=== PATIENT | female | born 1955 | race Caucasian/White ===

== ENCOUNTER 2022-12-17 16:11 | Day surgery (SDC) | payer MEDICARE, OTHER ==
[2022-12-17] MEDS ORDERED: Depo-Medrol 40 MG/ML IM ONE (16:12)
[2022-12-17] MEDS ORDERED: BUPIVACAINE 0.5% VIAL IJ ONE (16:12)
[2022-12-17] MEDS ORDERED: Lactated Ringers 1,000 ML IV ONE (16:44)
[2022-12-17] MEDS ORDERED: DIPRIVAN 200 MG/20 ML IV ONE (16:55)
[2022-12-17] MEDS ORDERED: Xylocaine-Mpf 2% 5 Ml Vial ONE (16:55)
--- NOTE | 2022-12-17 18:44 | XRAY ---
Indication: Bilateral L4-S1 MBB. Intraoperative fluoroscopy provided for 13 seconds. Single digital spot image submitted for interpretation demonstrates posterior needle tips projecting over the expected left and right L4-S1 nerve roots. Correlate with intraoperative findings/report.
--- NOTE | 2022-12-18 08:47 | XRAY ---
13 seconds of fluoroscopy was used in surgery for a bilateral L4-S1 MBB.
== END 2022-12-17 17:40 | disposition home or self-care (01) ==
LOC: SDC-PAIN 16:11
PROVIDERS: ATTEND Psychiatry & Neurology Pain Medicine
DX: M47.816 Spondylosis without myelopathy or radiculopathy, lumbar region (principal); Z79.899 Other long term (current) drug therapy
CPT/HCPCS: 64493; 64494; 72020; 77002; J1030; J2704

== ENCOUNTER 2023-02-10 07:41 | Day surgery (SDC) | payer MEDICARE, OTHER ==
[2023-02-10] MEDS ORDERED: Epinephrine Preservative Free 1 MG/ML IJ ONE (07:42)
[2023-02-10] MEDS ORDERED: Ak-Dilate OPHTHALMIC*** 1.065 ML, Cyclogyl 1% OPHTH SOL 1.065 ML, GATIFLOXACIN 0.5% OPH... OP ONE ×4 (08:00)
[2023-02-10] MEDS ORDERED: Lactated Ringers 1,000 ML IV SCH (08:00)
[2023-02-10] MEDS ORDERED: cefUROXime sodium 0.005 GM in Sodium Chloride Flush 30 ML*** 0.5 ML IJ ONE (08:00)
[2023-02-10] MEDS ORDERED: NON-FORMULARY ITEM OP ONE (08:00)
[2023-02-10] MEDS ORDERED: BETADINE 5% OPHTHALMIC 30 ML OP ONE (08:00)
[2023-02-10] MEDS ORDERED: TETRACAINE 0.5% STERI-UNIT SOL OP ONE ×2 (08:00)
[2023-02-10] MEDS ORDERED: Lactated Ringers 1,000 ML IV ONE (08:27)
[2023-02-10] MEDS ORDERED: Zofran 4 MG/2 ML VIAL IV PRN (10:00)
[2023-02-10] MEDS ORDERED: ACETAZOLAMIDE 250 MG TABLET PO ONE (10:00)
[2023-02-10] MEDS ORDERED: DIPRIVAN 200 MG/20 ML IV ONE ×2 (11:19→11:28)
[2023-02-10 11:56] VITALS: BP 151/77; PULSE 71; O2SAT 99
== END 2023-02-10 12:03 | disposition home or self-care (01) ==
LOC: SDC 07:41
PROVIDERS: ATTEND Ophthalmology
DX: H25.812 Combined forms of age-related cataract, left eye (principal)
CPT/HCPCS: C1780; J0171; J2704; A9270-GY

== ENCOUNTER 2023-03-10 08:51 | Day surgery (SDC) | payer MEDICARE, OTHER ==
[~2023-03-10 08:51] MED LIST: Ak-Dilate OPHTHALMIC*** 1.065 ML, Cyclogyl 1% OPHTH SOL 1.065 ML, GATIFLOXACIN 0.5% OPH... OP ONE; BETADINE 5% OPHTHALMIC 30 ML OP ONE; Lactated Ringers 1,000 ML IV SCH; NON-FORMULARY ITEM OP ONE; TETRACAINE 0.5% STERI-UNIT SOL OP ONE; cefUROXime sodium 0.005 GM in Sodium Chloride Flush 30 ML*** 0.5 ML IJ ONE
[2023-03-10] MEDS ORDERED: Epinephrine Preservative Free 1 MG/ML IJ ONE (08:52)
[2023-03-10] MEDS ORDERED: Lactated Ringers 1,000 ML IV ONE (08:59)
[2023-03-10] MEDS ORDERED: Zofran 4 MG/2 ML VIAL IV PRN (09:00)
[2023-03-10] MEDS ORDERED: ACETAZOLAMIDE 250 MG TABLET PO ONE (09:00)
[2023-03-10] MEDS ORDERED: DIPRIVAN 200 MG/20 ML IV ONE (12:33)
[2023-03-10 13:06] VITALS: BP 134/84; PULSE 70; O2SAT 99
== END 2023-03-10 13:11 | disposition home or self-care (01) ==
LOC: SDC 08:51
PROVIDERS: ATTEND Ophthalmology
DX: H25.811 Combined forms of age-related cataract, right eye (principal)
CPT/HCPCS: C1780; J0171; J2704; A9270-GY

== ENCOUNTER 2023-12-17 06:14 | Day surgery (SDC) | payer MEDICARE ==
[2023-12-17] MEDS: Lactated Ringers 1,000 ML IV SCH (06:50)
[2023-12-17 07:08] VITALS: TEMP 97.2
[2023-12-17] MEDS ORDERED: DIPRIVAN 200 MG/20 ML IV ONE ×2 (07:38→07:52)
[2023-12-17 08:36] VITALS: RESP 16
[2023-12-17 08:53] VITALS: BP 114/78; PULSE 87; O2SAT 99
--- NOTE | 2023-12-17 09:11 | OP ---
SURGERY DATE: 12/17/2023 SURGERY TIME: 737 PREOPERATIVE DIAGNOSIS: 1. SCREENING COLONOSCOPY. POSTOPERATIVE DIAGNOSIS: 1. SPLENIC FLEXURE POLYP. 2. DIVERTICULOSIS. PROCEDURE: 1. Colonoscopy. SURGEON: Dr. Reno Menezes. ANESTHESIA: MAC by Colin Sorensen CRNA. SPECIMENS: 1. Hot forceps polypectomy from the splenic flexure. ESTIMATED BLOOD LOSS: Minimal. DESCRIPTION OF PROCEDURE: After informed written consent was obtained, the patient was taken to the endoscopy suite. She was placed in the left lateral decubitus position and anesthesia was titrated to the desired level of consciousness. Digital rectal exam showed normal sphincter tone and no internal lesions. The scope was inserted in the rectum and sequentially the entire colonic mucosa was traversed. The level of the cecum was reached and verified with direct visualization of the ileocecal valve. Upon withdrawal, there was a small sessile polyp in the splenic flexure area which was grasped with the forceps, cauterized, and removed in its entirety. There was no bleeding and the entire lesion appeared to be removed following removal. Upon withdrawal, there were scattered diverticula in the sigmoid colon with no bleeding or other abnormalities encountered. Prior to withdrawal, retroflexion was performed and showed no internal lesions. The scope was removed and the patient was transferred to the recovery room in good condition. She has been advised to follow-up in a week for pathology report.
== END 2023-12-17 08:55 | disposition home or self-care (01) ==
LOC: SDC 06:14
PROVIDERS: ATTEND Family Medicine
DX: Z12.11 Encounter for screening for malignant neoplasm of colon (principal); K57.30 Diverticulosis of large intestine without perforation or abscess without bleeding; D12.3 Benign neoplasm of transverse colon
CPT/HCPCS: J2704

== ENCOUNTER 2024-05-10 17:17 | Emergency (ER) | payer MEDICARE, OTHER ==
[2024-05-10 17:47] LABS: Absolute Neutrophil Ct (ANC) 3.09 x10^3/uL (1.56-6.13); BASOPHIL % 0.1 % (0.1-1.2); Basophil (Absolute #) 0.01 x10^3/uL (0.01-0.08); Eosinophil % 0.9 % (0.7-5.8); Eosinophil (Absolute #) 0.06 x10^3/uL (0.04-0.36); Hemoglobin 10.8 g/dL (11.2-15.7); IMMATURE GRAN # 0.04 x10^3u/L (0.001-0.031); IMMATURE GRAN % 0.6 % (0.001-0.429); Lymphocyte (Absolute #) 2.58 x10^3/uL (1.18-3.74); Lymphocytes % 37.1 % (19.3-51.7); Mean Cell Volume 84.5 fL (79.4-94.8); Mean Corpuscular Hemoglobin 29.4 pg (25.6-32.2); Mean Corpuscular Hgb Concent. 34.8 g/dL (32.2-35.5); Monocyte (Absolute #) 1.18 x10^3/uL (0.24-0.86); Neutrophil % 44.3 % (34.0-71.1); Platelet Count 240 x10^3/uL (182-369); Red Blood Count 3.67 x10^6/uL (3.93-5.22); Red Cell Distribution Width 15.3 % (11.7-14.4)
[2024-05-10] MEDS ORDERED: Zofran 4 MG/2 ML VIAL ONE (17:53)
[2024-05-10] MEDS ORDERED: Sodium Chloride 0.9% 1000 ML 1,000 ML ONE (17:53)
[2024-05-10 17:55] LABS: Appearance Clear (Clear); Bacteria Few /HPF (None Seen); Bilirubin Negative (Negative); Blood Negative (Negative); Epithelial Cells Moderate /HPF (None Seen); Glucose, Urine Negative (Negative); Hyaline Casts NONE SEEN /LPF (0-2); Ketones Negative (Negative); Leukocyte Esterase Trace (Negative); Nitrite Negative (Negative); Ph 7.5 (4.6-8.0); Protein,Urine Dip Trace (Negative); RBC 0-2 /HPF (0-5); Specific Gravity 1.015 (1.005-1.030); WBC 0-2 /HPF (0-5)
[2024-05-10] MEDS: Sodium Chloride 0.9% 1000 ML 1,000 ML IV SCH (17:55)
[2024-05-10] MEDS: Zofran 4 MG/2 ML VIAL IV ONE (17:56)
[2024-05-10 17:59] LABS: ADD URINE CULTURE? NO (NO)
[2024-05-10 18:09] LABS: ALBUMIN 4.2 g/dL (3.5-5.0); Calcium 9.1 mg/dL (8.4-10.2); Creatinine 1 0.95 mg/dL (0.52-1.04); EST GLOMERULAR FILTRATION RATE 65.3 ML/MIN; Potassium 4.7 mmol/L (3.5-5.1); Total Protein 8.8 g/dL (6.3-8.2)
--- NOTE | 2024-05-10 19:41 | ERPHSYRPT ---
- History of Present Illness Timing/Duration: today (LKW 8AM) Severity: moderate Associated Symptoms: malaise, weakness <MUNIRA SHIELDS - Last Filed: 05/10/24 20:44> - History of Present Illness Source: patient Exam Limitations: no limitations Patient Subjective Stated Complaint: Pt states "I am not sure what is going on, my stomach hurts." Triage Nursing Assessment: Pt presented alert and oriented to person, place and month. Pt has brief moments of confusion. PT able to speak in clear full sentences. Hx Tetanus, Diphtheria Vaccination/Date Given: Yes Hx Influenza Vaccination/Date Given: Yes Hx Pneumococcal Vaccination/Date Given: Yes Immunizations Up to Date: No <KARTIK GLOVER - Last Filed: 05/11/24 03:55> - History of Present Illness Time Seen by Provider: 05/10/24 17:50 Physician History: Patient is a 69-year-old female presents to emergency department for evaluation of confusion. Patient also having difficulty with memory. Patient drove up from [place] from visiting a friend. Patient did not recall her visitation. Family reports that patient is not remembering basic facts. Patient also experiencing generalized abdominal pain no headache no chest pain or shortness of breath. No nausea vomiting or diaphoresis. Patient is normally alert and oriented x 4. Patient states she feels fine otherwise. Family at bedside voices no other complaints or concerns at this time. Portions of this note were created with voice recognition technology. There may be grammatical, spelling, punctuation or sound alike errors (KARTIK GLOVER) Allergies/Adverse Reactions: methotrexate Allergy (Mild, Verified 12/17/23 06:50) rash/ itching Home Medications: RX: ALPRAZolam 0.25 MG [xanAX 0.25 MG] 0.25 mg PO UD PRN 02/03/23 [History] RX: Hydroxychloroquine Sulfate 1 tab PO UD 02/03/23 [History] RX: Topiramate 25 mg [Topamax 25 MG] 25 mg PO TID 02/03/23 [History] RX: Butalbit/Acetamin/Caff/Codeine [Fioricet-Cod [id number] Cap] 1 tab PO DAILY PRN PRN 11/12/23 [History] RX: Fenofibrate Nanocrystallized [Fenofibrate] 145 mg PO DAILY 11/12/23 [History] RX: Cyanocobalamin 1000 Mcg/ml [Cyanocobalamin B-12 1000 MCG/ML] 1,000 mcg IJ UD 12/17/23 [History] Carvedilol 3.125 mg [Coreg 3.125 MG] 3.125 mg PO DAILY 05/10/24 [History] Isosorbide Mononitrate 30 mg [Imdur 30 MG] 30 mg PO DAILY 05/10/24 [History] RX: Hydralazine HCl 10 mg PO DAILY PRN 05/10/24 [History] Ranolazine 500 MG [Ranexa 500 MG] 500 mg PO BID 05/10/24 [History] Travel Risk - International Travel Have you traveled outside of the country in past 3 weeks: No - Emerging Infectious Disease Are you exhibiting symptoms associated with any current EIDs: No <KARTIK GLOVER - Last Filed: 05/11/24 03:55> - Review of Systems Constitutional: No Symptoms, No Fever, No Chills Eyes: No Symptoms Ears, Nose, & Throat: No Symptoms Respiratory: No Symptoms, No Cough, No Dyspnea Cardiac: No Symptoms, No Chest Pain, No Edema, No Syncope Abdominal/Gastrointestinal: No Symptoms, No Abdominal Pain, No Nausea, No Vomiting, No Diarrhea Genitourinary Symptoms: No Symptoms, No Dysuria Musculoskeletal: No Symptoms, No Back Pain, No Neck Pain Skin: No Symptoms, No Rash Neurological: No Symptoms, No Dizziness, No Focal Weakness, No Sensory Changes Psychological: No Symptoms Endocrine: No Symptoms Hematologic/Lymphatic: No Symptoms Immunological/Allergic: No Symptoms All Other Systems: Reviewed and Negative <KARTIK GLOVER - Last Filed: 05/11/24 03:55> - Past Medical History Pertinent Past Medical History: Yes Neurological History: No Pertinent History ENT History: Cataracts Cardiac History: High Cholesterol, Hypertension Respiratory History: No Pertinent History Endocrine Medical History: No Pertinent History Musculoskeletal History: Osteoarthritis, Rheumatoid Arthritis GI Medical History: No Pertinent History History: Other Psycho-Social History: Anxiety Female Reproductive Disorders: No Pertinent History Other Medical History: RIGHT PARTIAL KNEE ARTHROPLASTY 2010. HYSTERECTOMY,. incontinence - Past Surgical History Past Surgical History: Yes Neuro Surgical History: No Pertinent History Cardiac: No Pertinent History Respiratory: No Pertinent History Gastrointestinal: No Pertinent History Genitourinary: No Pertinent History Musculoskeletal: Joint Replacement, Other Female Surgical History: Hysterectomy, Tubal Ligation Other Surgical History: partial right knee replacement. back injection. left ankle surgery. knee injections - Social History Smoking Status: Former smoker How long have you smoked: 30 years Exposure to second hand smoke: No Drug Use: none - Social Determinants of Health Will the patient participate in the screening: Yes Do you worry about a steady place to live?: No Do you have any problems with any of the following?: No known problems In the past 12 months,have you had to go without utilities?: No Transportation Issues: No Has anyone in your support network made you feel unsafe?: No Have you or anyone in your house had to go without enough: No <ADALBERTOKARTIK - Last Filed: 05/11/24 03:55> - Physical Exam General Appearance: no apparent distress, alert Eye Exam: PERRL/EOMI, eyes nml inspection Ears, Nose, Throat Exam: normal ENT inspection, TMs normal, pharynx normal, moist mucous membranes Neck Exam: normal inspection, non-tender, supple, full range of motion Respiratory Exam: normal breath sounds, lungs clear, airway intact, No respiratory distress Cardiovascular Exam: regular rate/rhythm, normal heart sounds, normal peripheral pulses Gastrointestinal/Abdomen Exam: soft, normal bowel sounds, No tenderness, No mass Back Exam: normal inspection, normal range of motion, No CVA tenderness, No ve rtebral tenderness Extremity Exam: normal inspection, normal range of motion, pelvis stable Neurologic Exam: alert, oriented x 3, cooperative, package pick up II-XII nml as tested (No focal or lateralizing symptoms), normal mood/affect, sensation nml, No motor d eficits Skin Exam: normal color, warm, dry, No rash Lymphatic Exam: No adenopathy SpO2 Interpretation: normal SpO2: 98 O2 Delivery: Room Air <KARTIK GLOVER - Last Filed: 05/11/24 03:55> - Nursing Vital Signs Nursing Vital Signs: Initial Vital Signs Temperature 96.7 F 05/10/24 17:34 Pulse Rate 81 05/10/24 17:34 Respiratory Rate 20 05/10/24 17:34 Blood Pressure 186/114 05/10/24 17:34 O2 Sat by Pulse Oximetry 99 05/10/24 17:34 Pain Scale Pain Intensity 0 - Course Nursing assessment & vital signs reviewed: Yes EKG Interpreted by Me: RATE (81), Sinus Rhythm, NORMAL AXIS, NORMAL INTERVALS, NORMAL QRS - CT Exams Head CT Interpretation: Tele-radiologist Report (No acute intracranial pathology) Abdomen/Pelvis CT Interpretation: Tele-radiologist Report <KARTIK GLOVER - Last Filed: 05/11/24 03:55> Ordered Tests: Active Orders 24 hr Category Date Time Status Registered Associate STAT Care 05/10/24 17:27 Active EKG-ER Only STAT Care 05/10/24 17:27 Active IV Insertion STAT Care 05/10/24 17:27 Active Pulse Oximetry (ED) STAT Care 05/10/24 17:27 Active Tele-Health Consult ROUTINE Cons 05/10/24 18:22 Active ABDOMEN AND PELVIS W/0 CONTRAS [CT] Stat Exams 05/10/24 17:40 Completed HEAD WITHOUT CONTRAST [CT] Stat Exams 05/10/24 17:26 Completed BMP Stat Lab 05/10/24 23:05 Completed BMP Stat Lab 05/11/24 01:11 Completed CBC W DIFF Stat Lab 05/10/24 17:35 Completed CMP Stat Lab 05/10/24 17:35 Completed CMP Stat Lab 05/10/24 20:55 Completed TROPONIN Q4H Lab 05/10/24 17:35 Completed TROPONIN Q4H Lab 05/10/24 20:55 Completed TROPONIN Q4H Lab 05/11/24 01:11 Completed UA W/RFX UR CULTURE Stat Lab 05/10/24 17:35 Completed Medication Summary Discontinued Medications Generic Name Dose Route Start Last Admin Trade Name Jovanyq PRN Reason Stop Dose Admin Al Hydrox/Mg Hydrox/Simethicone Confirm 05/10/24 21:23 Mag Hydrox/Al Hydrox/Simeth 30 Ml Udcup Administered 05/10/24 21:24 Dose 30 ml .ROUTE .STK-MED ONE Alprazolam 0.5 mg 05/10/24 21:38 05/10/24 21:43 Alprazolam 0.5 Mg Tablet PO 05/10/24 21:39 0.5 mg STAT ONE Administration Alprazolam Confirm 05/10/24 21:42 Alprazolam 0.5 Mg Tablet Administered 05/10/24 21:43 Dose 0.5 mg .ROUTE .STK-MED ONE Sodium Chloride 1,000 mls @ 50 mls/hr 05/10/24 17:30 05/11/24 02:13 Sodium Chloride 0.9% 1000 Ml IV 06/09/24 17:29 200 mls/hr .Q20H ALEKSANDR Infusion Sodium Chloride 500 mls @ 20 mls/hr 05/10/24 21:45 05/10/24 22:29 Sodium Chloride 3% Hypertonic IV 06/09/24 21:44 0 mls/hr .Q24H ALEKSANDR Infusion Sodium Chloride Confirm 05/10/24 17:53 Sodium Chloride 0.9% 1000 Ml Administered 05/10/24 17:54 Dose 1,000 mls @ ud .ROUTE .STK-MED ONE Lidocaine HCl Confirm 05/10/24 21:23 Lidocaine Hcl 2% Viscous 15 Ml Udcup Administered 05/10/24 21:24 Dose 15 ml .ROUTE .STK-MED ONE Magnesium Hydroxide 45 ml 05/10/24 21:02 05/10/24 21:24 Mag Hydrx/Alum Hyd/Simeth/Lido 45 Ml Bottle PO 05/10/24 21:03 45 ml STAT ONE Administration Ondansetron HCl 4 mg 05/10/24 17:28 05/10/24 17:56 Ondansetron Hcl 4 Mg/2 Ml Vial IV 05/10/24 17:29 4 mg STAT ONE Administration Ondansetron HCl Confirm 05/10/24 17:53 Ondansetron Hcl 4 Mg/2 Ml Vial Administered 05/10/24 17:54 Dose 4 mg .ROUTE .STK-MED ONE Lab/Rad Data: Laboratory Result Diagrams 05/10/24 17:35 05/11/24 01:11 Laboratory Results 05/11/24 05/11/24 05/10/24 Range/Units 01:11 01:11 23:05 WBC (3.98-10.04) x10^3/uL RBC (3.93-5.22) x10^6/uL Hgb (11.2-15.7) g/dL Hct (34.1-44.9) % MCV (79.4-94.8) fL MCH (25.6-32.2) pg MCHC (32.2-35.5) g/dL RDW (11.7-14.4) % Plt Count (182-369) x10^3/uL MPV (9.4-12.3) fL Gran % (34.0-71.1) % Immature Gran % (Auto) (0.001-0.429) % Nucleat RBC Rel Count (0.00-0.2) % Eos # (Auto) (0.04-0.36) x10^3/uL Immature Gran # (Auto) (0.001-0.031) x10^3u/L Absolute Lymphs (auto) (1.18-3.74) x10^3/uL Absolute Monos (auto) (0.24-0.86) x10^3/uL Absolute Nucleated RBC (0.00-0.012) x10^3u/L Lymphocytes % (19.3-51.7) % Monocytes % (4.7-12.5) % Eosinophils % (0.7-5.8) % Basophils % (0.1-1.2) % Absolute Granulocytes (1.56-6.13) x10^3/uL Basophils # (0.01-0.08) x10^3/uL Sodium 117 L* 116 L* (135-145) mmol/L Potassium 4.1 4.1 (3.5-5.1) mmol/L Chloride 87 L 88 L (98-107) mmol/L Carbon Dioxide 21 L 20 L (22-30) mmol/L Anion Gap 13.3 12.3 (5-15) MEQ/L BUN 15 15 (7-17) mg/dL Creatinine 1.03 1.00 (0.52-1.04) mg/dL Estimated GFR 59.2 61.4 ML/MIN Glucose 91 95 (74-106) mg/dL Calcium 8.7 8.6 (8.4-10.2) mg/dL Total Bilirubin (0.2-1.3) mg/dL AST (14-36) U/L ALT (0-35) U/L Alkaline Phosphatase (38-126) U/L Troponin I < 0.012 (0.000-0.033) ng/mL Serum Total Protein (6.3-8.2) g/dL Albumin (3.5-5.0) g/dL Urine Color (Yellow) Urine Appearance (Clear) Urine pH (4.6-8.0) Ur Specific [place] (1.005-1.030) Urine Protein (Negative) Urine Glucose (UA) (Negative) mg/dL Urine Ketones (Negative) Urine Blood (Negative) Urine Nitrite (Negative) Urine Bilirubin (Negative) Urine Urobilinogen (0.2) mg/dL Ur Leukocyte Esterase (Negative) U Hyaline Cast (Auto) (0-2) /LPF Urine Microscopic RBC (0-5) /HPF Urine Microscopic WBC (0-5) /HPF Ur Epithelial Cells (None Seen) /HPF Urine Bacteria (None Seen) /HPF Urine Culture Reflexed (NO) 05/10/24 05/10/24 05/10/24 Range/Units 20:55 20:55 17:35 WBC (3.98-10.04) x10^3/uL RBC (3.93-5.22) x10^6/uL Hgb (11.2-15.7) g/dL Hct (34.1-44.9) % MCV (79.4-94.8) fL MCH (25.6-32.2) pg MCHC (32.2-35.5) g/dL RDW (11.7-14.4) % Plt Count (182-369) x10^3/uL MPV (9.4-12.3) fL Gran % (34.0-71.1) % Immature Gran % (Auto) (0.001-0.429) % Nucleat RBC Rel Count (0.00-0.2) % Eos # (Auto) (0.04-0.36) x10^3/uL Immature Gran # (Auto) (0.001-0.031) x10^3u/L Absolute Lymphs (auto) (1.18-3.74) x10^3/uL Absolute Monos (auto) (0.24-0.86) x10^3/uL Absolute Nucleated RBC (0.00-0.012) x10^3u/L Lymphocytes % (19.3-51.7) % Monocytes % (4.7-12.5) % Eosinophils % (0.7-5.8) % Basophils % (0.1-1.2) % Absolute Granulocytes (1.56-6.13) x10^3/uL Basophils # (0.01-0.08) x10^3/uL Sodium 115 L* (135-145) mmol/L Potassium 4.7 (3.5-5.1) mmol/L Chloride 87 L (98-107) mmol/L Carbon Dioxide 18 L (22-30) mmol/L Anion Gap 14.9 (5-15) MEQ/L BUN 16 (7-17) mg/dL Creatinine 0.99 (0.52-1.04) mg/dL Estimated GFR 62.1 ML/MIN Glucose 104 (74-106) mg/dL Calcium 9.0 (8.4-10.2) mg/dL Total Bilirubin 1.00 (0.2-1.3) mg/dL AST 89 H (14-36) U/L ALT 47 H (0-35) U/L Alkaline Phosphatase 72 (38-126) U/L Troponin I < 0.012 < 0.012 (0.000-0.033) ng/mL Serum Total Protein 8.5 H (6.3-8.2) g/dL Albumin 4.1 (3.5-5.0) g/dL Urine Color (Yellow) Urine Appearance (Clear) Urine pH (4.6-8.0) Ur Specific [place] (1.005-1.030) Urine Protein (Negative) Urine Glucose (UA) (Negative) mg/dL Urine Ketones (Negative) Urine Blood (Negative) Urine Nitrite (Negative) Urine Bilirubin (Negative) Urine Urobilinogen (0.2) mg/dL Ur Leukocyte Esterase (Negative) U Hyaline Cast (Auto) (0-2) /LPF Urine Microscopic RBC (0-5) /HPF Urine Microscopic WBC (0-5) /HPF Ur Epithelial Cells (None Seen) /HPF Urine Bacteria (None Seen) /HPF Urine Culture Reflexed (NO) 05/10/24 05/10/24 05/10/24 Range/Units 17:35 17:35 17:35 WBC 7.0 (3.98-10.04) x10^3/uL RBC 3.67 L (3.93-5.22) x10^6/uL Hgb 10.8 L (11.2-15.7) g/dL Hct 31.0 L (34.1-44.9) % MCV 84.5 (79.4-94.8) fL MCH 29.4 (25.6-32.2) pg MCHC 34.8 (32.2-35.5) g/dL RDW 15.3 H (11.7-14.4) % Plt Count 240 (182-369) x10^3/uL MPV 10.0 (9.4-12.3) fL Gran % 44.3 (34.0-71.1) % Immature Gran % (Auto) 0.6 H (0.001-0.429) % Nucleat RBC Rel Count 0.0 (0.00-0.2) % Eos # (Auto) 0.06 (0.04-0.36) x10^3/uL Immature Gran # (Auto) 0.04 H (0.001-0.031) x10^3u/L Absolute Lymphs (auto) 2.58 (1.18-3.74) x10^3/uL Absolute Monos (auto) 1.18 H (0.24-0.86) x10^3/uL Absolute Nucleated RBC 0.00 (0.00-0.012) x10^3u/L Lymphocytes % 37.1 (19.3-51.7) % Monocytes % 17.0 H (4.7-12.5) % Eosinophils % 0.9 (0.7-5.8) % Basophils % 0.1 (0.1-1.2) % Absolute Granulocytes 3.09 (1.56-6.13) x10^3/uL Basophils # 0.01 (0.01-0.08) x10^3/uL Sodium 115 L* (135-145) mmol/L Potassium 4.7 (3.5-5.1) mmol/L Chloride 86 L (98-107) mmol/L Carbon Dioxide 19 L (22-30) mmol/L Anion Gap 16.0 H (5-15) MEQ/L BUN 18 H (7-17) mg/dL Creatinine 0.95 (0.52-1.04) mg/dL Estimated GFR 65.3 ML/MIN Glucose 109 H (74-106) mg/dL Calcium 9.1 (8.4-10.2) mg/dL Total Bilirubin 1.00 (0.2-1.3) mg/dL AST 91 H (14-36) U/L ALT 48 H (0-35) U/L Alkaline Phosphatase 70 (38-126) U/L Troponin I (0.000-0.033) ng/mL Serum Total Protein 8.8 H (6.3-8.2) g/dL Albumin 4.2 (3.5-5.0) g/dL Urine Color Yellow (Yellow) Urine Appearance Clear (Clear) Urine pH 7.5 (4.6-8.0) Ur Specific [place] 1.015 (1.005-1.030) Urine Protein Trace A (Negative) Urine Glucose (UA) Negative (Negative) mg/dL Urine Ketones Negative (Negative) Urine Blood Negative (Negative) Urine Nitrite Negative (Negative) Urine Bilirubin Negative (Negative) Urine Urobilinogen 1.0 A (0.2) mg/dL Ur Leukocyte Esterase Trace A (Negative) U Hyaline Cast (Auto) NONE SEEN (0-2) /LPF Urine Microscopic RBC 0-2 (0-5) /HPF Urine Microscopic WBC 0-2 (0-5) /HPF Ur Epithelial Cells Moderate A (None Seen) /HPF Urine Bacteria Few A (None Seen) /HPF Urine Culture Reflexed NO (NO) - Progress Progress: improved Counseled pt/family regarding: lab results, diagnosis, rad results <ADALBERTOKARTIK - Last Filed: 05/11/24 03:55> - Progress Progress Note: Admission declined by Dr. Natasha Coates at approximately 8:57 PM. He reports discussing the case with the warehouse unloader and they mutually agree that hu lozano requires a higher level of care 05/10/24 21:[address] Ram at 11:08 PM. Leanna is hospitalist at [facility]. 05/10/24 23:09 69-year-old female presents to our ED for evaluation of confusion and difficulty with memory. Workup reveals a profound hyponatremia. CT head negative for acute intracranial pathology. CT abdomen pelvis revealed fecal stasis and hiatal hernia. Patient evaluated by teleneurology. CT teleneurology note for recommendations. However it appears they believe that patient's new medication may be factoring in the patient's clinical findings. Patient requires hospitalization for advanced imaging. Hyponatremia correction initiated. Hospitalist requesting transfer to higher level of care. Patient accepted by [facility] for further evaluation and treatment. Portions of this note were created with voice recognition technology. There may be grammatical, spelling, punctuation or sound alike errors Complexity problem addressed is moderate acute complicated. No critical care time. Complex of data reviewed and analyzed is extensive. Test ordered test reviewed results analyzed and correlated clinically with history and physical exam. Management discussed with hospitalist, Dr. Coates as well as Dr. Ram from [facility]. Patient accepted for transfer by Dr. Ram. Patient and family agree to transfer. Risk of complication and or risk of morbidity/mortality of patient management is high. Patient requires transfer/ho spitalization to higher level of care. Vital stable. Time spent to discharge patient approximately 15 minutes. Plan of care established for shared decision making. No social determinants of health present to impede follow-up. Portions of this note were created with voice recognition technology. There may be grammatical, spelling, punctuation or sound alike errors 05/11/24 03:47 (KARTIK GLOVER) <MUNIRA SHIELDS - Last Filed: 05/10/24 20:44> - Departure Departure Disposition: Observation Critical Care Time: No <KARTIK GLOVER - Last Filed: 05/11/24 03:55> - Departure Clinical Impression: Confusion, Hyponatremia, Encephalopathy Condition: Stable Referrals: [employer] [Primary Care Provider] - Follow up/PCP as directed
--- NOTE | 2024-05-10 20:43 | PCM.CONS ---
History of Present Illness - Neuro Consultation Date of Consultation Date: 05/10/24 ED Arrival Date & Time: 05/10/24 17:17 Providers: Attending Provider: ED Provider: KARTIK CARCAMO Consulting Provider: MUNIRA SHIELDS DO cc:: The requesting physician will be sent a copy of the consult. - Chief Complaint Patient Subjective Stated Complaint: Patient is a 69 yr. old RH woman who presents to the ED w AMS/ confusion w LKW 8AM today.... low serum Na+ noted... NIHSS 1 confusion/ Na+ 115.... / CT scan br (-)... recent TPX medication initiated... 1 month ago.... unclear why medication was initiated.... + hx of headaches... NIHSS 1/ CT scan br- visualized and reviewed- no acute findings.... Plan further MRI br in AM/ titration correction of serum Na+ per renal service.... 3% NaCL.... drip.... EEG/ paraneoplastic panel/ ANCA panel/ ESR/ CRP/ COVID panel/ resp panel.... etc... case reviewed and d/w Dr. Carcamo..... - History of Present Illness HPI: The patient is a 69FPatient is a 69 yr. old RH woman who presents to the ED w AMS/ confusion w LKW 8AM today.... low serum Na+ noted... NIHSS 1 confusion/ Na+ 115.... / CT scan br (-)... recent TPX medication initiated... 1 month ago.... unclear why medication was initiated.... + hx of headaches... NIHSS 1/ CT scan br- visualized and reviewed- no acute findings.... Plan further MRI br in AM/ titration correction of serum Na+ per renal service.... 3% NaCL.... drip.... EEG/ paraneoplastic panel/ ANCA panel/ ESR/ CRP/ COVID panel/ resp panel.... etc... case reviewed and d/w Dr. Carcamo..... Review of Systems - Review of Systems Review of Systems (Narrative): Pertinent positive and negative findings as per HPI. All other systems negative. - Past Medical History Past Medical History: Yes Neurological History: No Pertinent History ENT History: Cataracts Cardiac History: High Cholesterol, Hypertension Respiratory History: No Pertinent History Endocrine Medical History: No Pertinent History Musculoskelatal History: Osteoarthritis, Rheumatoid Arthritis GI Medical History: No Pertinent History History: Other Pyscho-Social History: Anxiety Reproductive Disorders: No Pertinent History Comment: RIGHT PARTIAL KNEE ARTHROPLASTY 2010. HYSTERECTOMY,. incontinence - Past Surgical History Past Surgical History: Yes Neuro Surgical History: No Pertinent History Cardiac History: No Pertinent History Respiratory Surgery: No Pertinent History GI Surgical History: No Pertinent History Genitourinary Surgical Hx: No Pertinent History Musculskeletal Surgical Hx: Joint Replacement, Other Female Surgical History: Hysterectomy, Tubal Ligation Other Surgical History: partial right knee replacement. back injection. left ankle surgery. knee injections - Social History Smoking Status: Former smoker How long have you smoked: 30 years Exposure to second hand smoke: No Alcohol: Daily Drug Use: none - Social Determinants of Health Will the patient participate in the screening: Yes Do you worry about a steady place to live?: No Do you have any problems with any of the following?: No known problems In the past 12 months,have you had to go without utilities?: No Have you or anyone in your house had to go without enough: No Transportation Issues: No Has anyone in your support network made you feel unsafe?: No Physical Exam - Vital Signs Vital Signs: Vital Signs - 24 hr 05/10/24 05/10/24 05/10/24 17:34 18:11 18:15 Temperature 96.7 F Pulse Rate 81 80 80 Respiratory 20 14 18 Rate Blood Pressure Blood Pressure 186/114 [Right Arm] O2 Sat by Pulse 99 97 Oximetry 05/10/24 05/10/24 05/10/24 18:16 18:30 18:45 Temperature Pulse Rate 79 78 78 Respiratory 19 22 19 Rate Blood Pressure 166/103 150/75 160/96 Blood Pressure [Right Arm] O2 Sat by Pulse 98 96 94 L Oximetry 05/10/24 05/10/24 05/10/24 19:01 19:16 19:30 Temperature Pulse Rate 79 78 80 Respiratory 17 19 20 Rate Blood Pressure 104/88 151/120 159/98 Blood Pressure [Right Arm] O2 Sat by Pulse 93 L 94 L 96 Oximetry 05/10/24 05/10/24 05/10/24 19:41 19:46 20:00 Temperature Pulse Rate 78 78 Respiratory 18 20 Rate Blood Pressure 162/76 162/119 Blood Pressure [Right Arm] O2 Sat by Pulse 98 96 96 Oximetry - Physical Exam Tele-Neuro Physical Exam (Narrative): Neuro exam: NIHSS 1 Patient awake/ alert/ oriented in 3/4 spheres. Speech is fluent/ naming is intact/ Repetition intact/ no evidence of aphasia noted. No dysarthria noted. 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/ EOMs intact in all directions of gaze/symmetric facial sensation V1-2 -3 bilaterally/ symmetrical facial upper/ lower noted/ audition intact/ tongue midline/ phonation intact/ + gag reflex intact/ SCMs(=) Motor exam- no pronator drift/ 4/5+ bilateral UEs/ LEs proximal to distal Sensory-intact to light touch throughout bilateral UEs/ LEs/ no agraphesthesia/ no astereognosis/ no double simultaneous extinction DTRs- deferred/ no babinski sign illicited Cerebellar- finger to nose/ heel-reddy (=)/ no dysmetria noted/ no overshoot nystagmus/ no rebound phenomenon Gait- not tested Fine motor- no resting tremor/ no myoclonus/ no abnormal involuntary movements/ no choreiform movements Gen: No apparent distress, non-toxic appearing Psych: normal affect HEENT: No visible bruising, no mucosal pallor Ophth: No scleral icterus, no conjunctival injection or proptosis Neck: No nuchal rigidity, turns neck without difficulty Resp: normal respirations, no distress, speaking in full sentences CV: No visible edema in LE Abd: No abd distention noted MSK: No joint swelling, erythema noted. No contractures noted. Skin: No pallor. No visible rashes or bruising - NIHSS Stroke Scale Date Completed: 05/10/24 Time Stroke Scale Completed: 17:49 Results - Labs Lab/Micro Results: Lab Results-Last 24 Hours 05/10/24 05/10/24 05/10/24 Range/Units 17:35 17:35 17:35 WBC 7.0 (3.98-10.04) x10^3/uL RBC 3.67 L (3.93-5.22) x10^6/uL Hgb 10.8 L (11.2-15.7) g/dL Hct 31.0 L (34.1-44.9) % MCV 84.5 (79.4-94.8) fL MCH 29.4 (25.6-32.2) pg MCHC 34.8 (32.2-35.5) g/dL RDW 15.3 H (11.7-14.4) % Plt Count 240 (182-369) x10^3/uL MPV 10.0 (9.4-12.3) fL Gran % 44.3 (34.0-71.1) % Immature Gran % (Auto) 0.6 H (0.001-0.429) % Nucleat RBC Rel Count 0.0 (0.00-0.2) % Eos # (Auto) 0.06 (0.04-0.36) x10^3/uL Immature Gran # (Auto) 0.04 H (0.001-0.031) x10^3u/L Absolute Lymphs (auto) 2.58 (1.18-3.74) x10^3/uL Absolute Monos (auto) 1.18 H (0.24-0.86) x10^3/uL Absolute Nucleated RBC 0.00 (0.00-0.012) x10^3u/L Lymphocytes % 37.1 (19.3-51.7) % Monocytes % 17.0 H (4.7-12.5) % Eosinophils % 0.9 (0.7-5.8) % Basophils % 0.1 (0.1-1.2) % Absolute Granulocytes 3.09 (1.56-6.13) x10^3/uL Basophils # 0.01 (0.01-0.08) x10^3/uL Sodium 115 L* (135-145) mmol/L Potassium 4.7 (3.5-5.1) mmol/L Chloride 86 L (98-107) mmol/L Carbon Dioxide 19 L (22-30) mmol/L Anion Gap 16.0 H (5-15) MEQ/L BUN 18 H (7-17) mg/dL Creatinine 0.95 (0.52-1.04) mg/dL Estimated GFR 65.3 ML/MIN Glucose 109 H (74-106) mg/dL Calcium 9.1 (8.4-10.2) mg/dL Total Bilirubin 1.00 (0.2-1.3) mg/dL AST 91 H (14-36) U/L ALT 48 H (0-35) U/L Alkaline Phosphatase 70 (38-126) U/L Troponin I (0.000-0.033) ng/mL Serum Total Protein 8.8 H (6.3-8.2) g/dL Albumin 4.2 (3.5-5.0) g/dL Urine Color Yellow (Yellow) Urine Appearance Clear (Clear) Urine pH 7.5 (4.6-8.0) Ur Specific Burnham 1.015 (1.005-1.030) Urine Protein Trace A (Negative) Urine Glucose (UA) Negative (Negative) mg/dL Urine Ketones Negative (Negative) Urine Blood Negative (Negative) Urine Nitrite Negative (Negative) Urine Bilirubin Negative (Negative) Urine Urobilinogen 1.0 A (0.2) mg/dL Ur Leukocyte Esterase Trace A (Negative) U Hyaline Cast (Auto) NONE SEEN (0-2) /LPF Urine Microscopic RBC 0-2 (0-5) /HPF Urine Microscopic WBC 0-2 (0-5) /HPF Ur Epithelial Cells Moderate A (None Seen) /HPF Urine Bacteria Few A (None Seen) /HPF Urine Culture Reflexed NO (NO) 05/10/24 Range/Units 17:35 WBC (3.98-10.04) x10^3/uL RBC (3.93-5.22) x10^6/uL Hgb (11.2-15.7) g/dL Hct (34.1-44.9) % MCV (79.4-94.8) fL MCH (25.6-32.2) pg MCHC (32.2-35.5) g/dL RDW (11.7-14.4) % Plt Count (182-369) x10^3/uL MPV (9.4-12.3) fL Gran % (34.0-71.1) % Immature Gran % (Auto) (0.001-0.429) % Nucleat RBC Rel Count (0.00-0.2) % Eos # (Auto) (0.04-0.36) x10^3/uL Immature Gran # (Auto) (0.001-0.031) x10^3u/L Absolute Lymphs (auto) (1.18-3.74) x10^3/uL Absolute Monos (auto) (0.24-0.86) x10^3/uL Absolute Nucleated RBC (0.00-0.012) x10^3u/L Lymphocytes % (19.3-51.7) % Monocytes % (4.7-12.5) % Eosinophils % (0.7-5.8) % Basophils % (0.1-1.2) % Absolute Granulocytes (1.56-6.13) x10^3/uL Basophils # (0.01-0.08) x10^3/uL Sodium (135-145) mmol/L Potassium (3.5-5.1) mmol/L Chloride (98-107) mmol/L Carbon Dioxide (22-30) mmol/L Anion Gap (5-15) MEQ/L BUN (7-17) mg/dL Creatinine (0.52-1.04) mg/dL Estimated GFR ML/MIN Glucose (74-106) mg/dL Calcium (8.4-10.2) mg/dL Total Bilirubin (0.2-1.3) mg/dL AST (14-36) U/L ALT (0-35) U/L Alkaline Phosphatase (38-126) U/L Troponin I < 0.012 (0.000-0.033) ng/mL Serum Total Protein (6.3-8.2) g/dL Albumin (3.5-5.0) g/dL Urine Color (Yellow) Urine Appearance (Clear) Urine pH (4.6-8.0) Ur Specific Burnham (1.005-1.030) Urine Protein (Negative) Urine Glucose (UA) (Negative) mg/dL Urine Ketones (Negative) Urine Blood (Negative) Urine Nitrite (Negative) Urine Bilirubin (Negative) Urine Urobilinogen (0.2) mg/dL Ur Leukocyte Esterase (Negative) U Hyaline Cast (Auto) (0-2) /LPF Urine Microscopic RBC (0-5) /HPF Urine Microscopic WBC (0-5) /HPF Ur Epithelial Cells (None Seen) /HPF Urine Bacteria (None Seen) /HPF Urine Culture Reflexed (NO) - Radiology Orders Radiology Orders: Radiology Procedures Category Date Time Status ABDOMEN AND PELVIS W/0 CONTRAS [CT] Stat Exams 05/10/24 17:40 Taken HEAD WITHOUT CONTRAST [CT] Stat Exams 05/10/24 17:[address] brain Impressions & Recommendations - ED Arrival Time ED Arrival Date & Time: ED Arrival Date and Time 05/10/24 17:17 Last known well time: - NIHSS NIHSS: Excusion Criteria Must answer YES to ALL in order to proceed with thrombolysis. Clear All Neurological deficit considered to be disabling within 4.5 h of ischemic stroke symptom onset or patient last known well BP < 185/110 Glucose > 50 mg/dL Exclusion Criteria Physicians with expertise in cerebrovascular disease may deem thrombolysis to be reasonable in the presence of one or more exclusion criteria after careful consideration of potential risk versus benefit to the patient. Clear All Acute head trauma or recent severe head trauma within the previous 3 months Symptoms suggesting subarachnoid hemorrhage Elevated blood pressure despite IV medications (>185/>110 mm Hg) Known coagulopathy platelets <100,000/mm3, INR >1.7, aPTT >40s, PT >15s (do not wait for labs unless known thrombocytopenia or anticoagulation) Thrombin inhibitors or factor Xa inhibitors unless aPTT, INR, platelet count, ECT, TT, or appropriate direct factor Xa activity assays are normal or the patient has not received a dose for >48 hours (with normal renal function) LMWH on anticoagulant (full treatment) dosing within < 24 hours Concomitant administration of IV Abciximab, or IV aspirin within [address] the start of IV alteplase initiation Extensive regions of marked clear and obvious hypodensity representing early ischemic changes irreversible injury Acute intracranial hemorrhage History of intracranial hemorrhage Symptoms consistent with infective endocarditis Known or suspected aortic arch dissection GI malignancy or recent GI bleed within 21 days Mild nondisabling stroke (NIHSS 0-5) Prior ischemic stroke within previous 3 months Intracranial/intraspinal surgery within 3 months Intra-axial intracranial neoplasm NIHSS NIHSS Scale 1 Default all to Zero Show All Descriptions 1. Level of Consciousness 0 x 1 2 3 1a.LOC Questions 0 1x 2 1b. LOC Commands 0x 1 2 2. Best Gaze 0x 1 2 3. Visual 0x 1 2 3 4. Facial Palsy 0x 1 2 3 5. Motor Arm 5a. Left Arm xx 0 1 2 3 4 UN 5b. Right Arm 0x 1 2 3 4 UN 6. Motor Leg 6a. Left Leg 0xx 1 2 3 4 UN 6b. Right Leg 0x 1 2 3 4 UN 7. Limb Ataxia 0x 1 2 UN 8. Sensory 0x 1 2 9. Best Language 0x 1 2 3 10. Dysarthria 0x 1 2 UN 11. Extinction and Inattention(formerly Neglect) 0x 1 2 NIHSS Comments: NIHSS Score: 1 Is patient a thrombectomy candidate:: No Candidate (No): Reason: Patient is not a candidat IV Thrombolysis Standard of Care: IV thrombolysis as a standard of care in acute stroke discussed with KARTIK AUSTIN. Risk, benefits, and options of IV thrombolytic therapy for acute ischemic stroke were discussed with the patient/family ANGELITO LAINEZ. We discussed that use of IV tenecteplase is in line with national stroke guidelines. We discussed that risks of IV thrombolytic use include intracranial hemorrhage, other fatal bleeding risks, and angioedema. Alternatives of treatment, including not proceeding with thrombolytic therapy were discussed. Delays in thromboysis: No - Recommendations Recommendations: -Neuro checks, NIHSS, vital signs monitoring as per post tenecteplase protocol -Repeat non contrast head CT or noncontrast MRI brain 24 hours after IV thrombolyltic administration. -Obtain STAT non contrast head CT if there are new neurological deficits, worsening of current deficits, or with complaint of severe headache. Notify Neurology XAVIER of changes in neurological exam. -Nicardipine gtt as needed to maintain BP< 180/105 x 24hr post tenecteplase administration. -Monitor for angioedema -SCD's for DVT prophylaxis. Work up: -Basic labs (CBC, BMP, TSH+T4) if not done already. -INR,PTT if not done already -Fasting Lipid Panel and Hgb A1c -Transthroacic echocardiogram [with bubble study] -EKG + Telemetry- monitor for A-FIB - monitor serum/ urine osmols - stop Topamax EEG (routine) Consider 3% NaCl drip per Renal service titrate for correction of serum Na+ derangements.- 64 ml/hr... fluid rate to increase Na+ by 0.5mml/L/hr... Monitoring of serum Na+ / urine Na+ q 6 hrs[address] per Renal service ST/ OT/ PT eval and treat Sz precautions while in hospital - padded side rails - oxygen and suction available at bedside - HOB 30 degrees EtOH w/d protocol- CIWA protocol if indicated Thiamine 100mg q day MVI q day Folate 1mg q day Labs- TSH, B12, GlycoHg, SPEP w IPEP, CMP, CBC w diff, HECTOR, PHILOMENA level, ESR, CRP, ammonia level, paraneoplastic panel, autoimmune panel, ANCA panel, Beta - 2 microglobulin... UDS MRI Brain wo tanisha Echo w bubble CM/SW for access to care issues + post-discharge needs This tele-neurology consultation was performed via two-way videoconferencing. I have discussed the case with ED physician, RN and patient/family. They understand and agree with this plan. ALL ABOVE IF NO CONTRAINDICATIONS: After the above preliminary workup is completed, further decisions regarding diagnosis and/or management can be made by primary team and/or in-house neurologist. Please re-consult our Teleneurology service, if in-house neurology not available, with additional questions, concerns, or changes in this patients neurologic status Secondary Stroke Prevention -Hold off on antiplatelet therapy x 24 hr post IV thrombolytic therapy Decision to initiate antiplatelet therapy, or anticoagulation if needed, will be based on repeat imaging at 24 hour post thrombolytic administration. -If not medical contraindication, start high intensity statin. Eg. Atrovastatin 80 mg daily Risk Factor Management -HTN control: BP <180/105 for first 24 hr post tenecteplase -If diabetic, optimize glucose control: fdc goal HgA1c <7 -HLD control: Long-term goal LDL <70. High intensity statin recommended. Moderate intensity statin in patients > 75 years. -Smoking Alcohol Use Drug use cessation counseling Stroke Rehabilitation: -Physical therapy, occupational therapy, speech therapy consults -Social work and case management consults for help with discharge needs. Impression and recommendation were discussed with Dr. KARTIK CARCAMO Thank you for allowing us to participate in this patient's care. Please call [facility] with questions, concerns, or change in patient's neurological status. This consult was performed via secure telemedicine audio/visual platform with [ ] RN assisting at bedside. Patient identity verified and consent obtained. TIQ recieved at [ ] Neuro Cart Time: Delays in Patient Encounter: Assessment & Plan - Encounter Encounter: "The entirety of this encounter was performed via Telemedicine using audio and visual "
[2024-05-10 21:17] LABS: ALBUMIN 4.1 g/dL (3.5-5.0); ANION GAP 14.9 MEQ/L (5-15); Creatinine 1 0.99 mg/dL (0.52-1.04); EST GLOMERULAR FILTRATION RATE 62.1 ML/MIN; Potassium 4.7 mmol/L (3.5-5.1); Total Protein 8.5 g/dL (6.3-8.2)
[2024-05-10] MEDS ORDERED: MAALOX ES 30 ML UNIT DOSE ONE (21:23)
[2024-05-10] MEDS ORDERED: XYLOCAINE VISCOUS 2% 15 ML CUP ONE (21:23)
[2024-05-10] MEDS: GI COCKTAIL 45 ML (Maalox/Lidocaine) PO ONE (21:24)
[2024-05-10] MEDS ORDERED: xanAX 0.5 MG ONE (21:42)
[2024-05-10] MEDS: xanAX 0.5 MG PO ONE (21:43)
--- NOTE | 2024-05-10 22:17 | XRAY ---
Indication: Confusion. Multiple contiguous axial images obtained of the head without contrast. Comparison: October 29, 2022 Normal appearing brain parenchyma, ventricles, and bony calvarium. Visualized paranasal sinuses and mastoid air cells are clear. Impression: Continued normal CT head without contrast exam.
--- NOTE | 2024-05-10 22:20 | XRAY ---
Indication: Abdomen pain. Multiple contiguous axial images obtained through the abdomen and pelvis without contrast. Comparison: None Study is degraded by respiration artifact throughout. Visualized lung bases grossly clear. Heart not enlarged. Small hiatal hernia. Noncontrasted stomach and bowel loops appear nonobstructed. Appendix not visualized. There is mild diffuse scattered colonic fecal debris. Previous hysterectomy. No free fluid/air. Remaining liver, gallbladder, pancreas, spleen, adrenal glands, kidneys, ureters, and bladder are grossly unremarkable for noncontrast exam. Mild scattered aortoiliac calcifications without AAA. Osseous structures intact with osteopenia, minimal/mild multilevel thoracolumbar degenerative spondylosis, 4-5 mm anterolisthesis L4 on L5, and minimal levoscoliosis centered at L3. Impression: 1. Respiration artifact limits exam. 2. Small hiatal hernia, mild diffuse fecal stasis, arteriosclerotic disease, and chronic bony findings. 3. Remaining CT abdomen/pelvis without contrast exam is grossly negative.
[2024-05-10 23:25] LABS: ANION GAP 12.3 MEQ/L (5-15); Calcium 8.6 mg/dL (8.4-10.2); EST GLOMERULAR FILTRATION RATE 61.4 ML/MIN; Potassium 4.1 mmol/L (3.5-5.1)
[2024-05-11 01:24] LABS: ANION GAP 13.3 MEQ/L (5-15); Calcium 8.7 mg/dL (8.4-10.2); Creatinine 1 1.03 mg/dL (0.52-1.04); EST GLOMERULAR FILTRATION RATE 59.2 ML/MIN; Potassium 4.1 mmol/L (3.5-5.1)
[2024-05-11 03:45] VITALS: BP 143/93; PULSE 79; RESP 16; TEMP 98.1
[2024-05-11 03:48] VITALS: O2SAT 98
== END 2024-05-11 03:38 | disposition short-term general hospital (02) ==
LOC: ED 17:17
DX: E87.1 Hypo-osmolality and hyponatremia (principal); R41.0 Disorientation, unspecified; R10.9 Unspecified abdominal pain; K44.9 Diaphragmatic hernia without obstruction or gangrene; G93.40 Encephalopathy, unspecified; E78.5 Hyperlipidemia, unspecified; I10 Essential (primary) hypertension; Z79.899 Other long term (current) drug therapy
CPT/HCPCS: 36000; 36415; 70450; 74176; 80048; 80053; 81001; 84484; 85025; 93005; 93041; 94760; 96374; 99285; J2405; A9270-GY

== ENCOUNTER 2024-05-22 11:34 | Observation (INO) | payer MEDICARE, OTHER ==
[2024-05-22] MEDS ORDERED: Sodium Chloride 0.9% 500 ML 500 ML IV ONE (12:15)
[2024-05-22] MEDS: Sodium Chloride 0.9% 500 ML 500 ML IV ONE (12:16)
--- NOTE | 2024-05-22 12:28 | ERPHSYRPT ---
- History of Present Illness Time Seen by Provider: 05/22/24 11:43 Source: patient, family Exam Limitations: no limitations Patient Subjective Stated Complaint: family brought pt in due to confusion Triage Nursing Assessment: Pt brought to the ER by her family, hypertensive, rates pain as 4/10 to her abdomen and head, pt has a tumor in her brain but unsure of its status, pt became confused last week and was found to have hyponatremia, pulses normal, skin n/w/d, no difficulty breathing, N&V Physician History: 69 years old female with history of hyponatremia, brain tumor is brought in the ER by family with complaints of confusion and not acting herself. Patient family reports having similar symptoms last week when her sodium was 113. She also has some headache and generalized abdominal pain with nausea and vomited times once. No fever or chills reported. No difficulty breathing. Patient is not a good historian and history is limited. Allergies/Adverse Reactions: methotrexate Allergy (Mild, Verified 05/22/24 16:26) rash/ itching Home Medications: ALPRAZolam 0.25 MG [xanAX 0.25 MG] 0.25 mg PO UD PRN 02/03/23 [History] Hydroxychloroquine Sulfate 200 mg PO UD 02/03/23 [History] Butalbit/Acetamin/Caff/Codeine [Fioricet-Cod 95-488-53-30 Cap] 1 tab PO DAILY PRN PRN 11/12/23 [History] Fenofibrate Nanocrystallized [Fenofibrate] 145 mg PO DAILY 11/12/23 [History] Cyanocobalamin 1000 Mcg/ml [Cyanocobalamin B-12 1000 MCG/ML] 1,000 mcg IJ UD 12/17/23 [History] Carvedilol 3.125 mg [Coreg 3.125 MG] 3.125 mg PO DAILY 05/10/24 [History] Hydralazine HCl 10 mg PO BID 05/10/24 [History] Isosorbide Mononitrate 30 mg [Imdur 30 MG] 30 mg PO DAILY 05/10/24 [History] Ranolazine 500 MG [Ranexa 500 MG] 500 mg PO BID 05/10/24 [History] Aspirin EC 81 mg [Ecotrin 81 mg] 81 mg PO DAILY 05/22/24 [History] Atorvastatin Calcium [Lipitor 20MG Tablet] 20 mg PO DAILY 05/22/24 [History] Buspirone HCl 5 mg [Buspar 5 mg] 10 mg PO BID 05/22/24 [History] Hx Tetanus, Diphtheria Vaccination/Date Given: Yes Hx Influenza Vaccination/Date Given: Yes Hx Pneumococcal Vaccination/Date Given: Yes Travel Risk - International Travel Have you traveled outside of the country in past 3 weeks: No - Emerging Infectious Disease Are you exhibiting symptoms associated with any current EIDs: No - Review of Systems Constitutional: No Symptoms Ears, Nose, & Throat: No Symptoms Respiratory: No Symptoms Cardiac: No Symptoms Abdominal/Gastrointestinal: Abdominal Pain, Nausea, Vomiting Genitourinary Symptoms: No Symptoms Musculoskeletal: No Symptoms Skin: No Symptoms Endocrine: No Symptoms Hematologic/Lymphatic: No Symptoms - Past Medical History Pertinent Past Medical History: Yes Neurological History: No Pertinent History ENT History: Cataracts Cardiac History: High Cholesterol, Hypertension Respiratory History: No Pertinent History Endocrine Medical History: No Pertinent History Musculoskeletal History: Osteoarthritis, Rheumatoid Arthritis GI Medical History: No Pertinent History History: Other Psycho-Social History: Anxiety Female Reproductive Disorders: No Pertinent History Other Medical History: RIGHT PARTIAL KNEE ARTHROPLASTY 2010. HYSTERECTOMY,. incontinence. mass in brain - Past Surgical History Past Surgical History: Yes Neuro Surgical History: No Pertinent History Cardiac: No Pertinent History Respiratory: No Pertinent History Gastrointestinal: No Pertinent History Genitourinary: No Pertinent History Musculoskeletal: Joint Replacement, Other Female Surgical History: Hysterectomy, Tubal Ligation Other Surgical History: partial right knee replacement. back injection. left ankle surgery. knee injections - Social History Smoking Status: Former smoker How long have you smoked: 30 years Exposure to second hand smoke: No Drug Use: none - Social Determinants of Health Will the patient participate in the screening: Yes Do you worry about a steady place to live?: No Do you have any problems with any of the following?: No known problems In the past 12 months,have you had to go without utilities?: No Transportation Issues: No Has anyone in your support network made you feel unsafe?: No Have you or anyone in your house had to go without enough: No - Nursing Vital Signs Nursing Vital Signs: Initial Vital Signs Temperature 96.8 F 05/22/24 11:38 Pulse Rate 75 05/22/24 11:38 Respiratory Rate 16 05/22/24 11:38 Blood Pressure 184/104 05/22/24 11:38 O2 Sat by Pulse Oximetry 100 05/22/24 11:38 Pain Scale Pain Intensity 0 - Physical Exam General Appearance: no apparent distress, alert, anxiety Eye Exam: PERRL/EOMI Ears, Nose, Throat Exam: normal ENT inspection Neck Exam: normal inspection, non-tender, supple, full range of motion Respiratory Exam: normal breath sounds, lungs clear Cardiovascular Exam: regular rate/rhythm, normal heart sounds Gastrointestinal/Abdomen Exam: soft, normal bowel sounds, No tenderness Back Exam: normal inspection Extremity Exam: normal inspection, normal range of motion, pelvis stable Neurologic Exam: alert, oriented x 3, cooperative, tire wrapper II-XII nml as tested, nml cerebellar function, sensation nml, No normal mood/affect, No motor deficits Skin Exam: normal color SpO2 Interpretation: normal SpO2: 100 O2 Delivery: Room Air Ordered Tests: Active Orders 24 hr Category Date Time Status Bedrest ROUTINE Activity 05/22/24 16:15 Active Up With Assistance ROUTINE Activity 05/22/24 16:15 Active Call Admit Doctor for Orders ON ADMISSION Care 05/22/24 16:15 Active Code Status Order ROUTINE Care 05/22/24 16:15 Active Fall Protocol Q1H Care 05/22/24 16:15 Active IV Insertion STAT Care 05/22/24 12:[address] in Observation ROUTINE Care 05/22/24 16:15 Active ABDOMEN AND PELVIS W CONTRAST [CT] Stat Exams 05/22/24 13:13 Completed HEAD WITH CONTRAST [CT] Stat Exams 05/22/24 13:17 Completed BLOOD CULTURE Stat Lab 05/22/24 12:33 Received CBC W DIFF Stat Lab 05/22/24 12:10 Completed CMP Stat Lab 05/22/24 12:00 Completed LIPASE Stat Lab 05/22/24 12:00 Completed Lactic Acid Stat Lab 05/22/24 12:20 Completed TROPONIN Q4H Lab 05/22/24 12:00 Completed TROPONIN Q4H Lab 05/22/24 16:20 Completed TROPONIN Q4H Lab 05/22/24 20:55 Completed UA W/RFX UR CULTURE Stat Lab 05/22/24 12:18 Completed Pulse Oximetry CONTINUOUS RT 05/22/24 16:15 Completed Transfer Order Routine Transfer 05/22/24 Completed Medication Summary Generic Name Dose Route Start Last Admin Trade Name Freq PRN Reason Stop Dose Admin Alprazolam 0.25 mg 05/22/24 16:42 Alprazolam 0.25 Mg Tablet PO 06/21/24 16:41 UD PRN ANXIETY Aspirin 81 mg 05/23/24 10:00 Aspirin 81 Mg Tablet.Ec PO 06/22/24 09:59 DAILY ALEKSANDR Buspirone HCl 10 mg 05/22/24 22:00 05/22/24 20:13 Buspirone Hcl 5 Mg Tablet PO 06/21/24 21:59 10 mg BID ALEKSANDR Administration Carvedilol 3.125 mg 05/23/24 10:00 Carvedilol 3.125 Mg Tablet PO 06/22/24 09:59 DAILY ALEKSANDR Clonidine 0.1 mg 05/22/24 17:08 05/22/24 17:37 Clonidine Hcl 0.1 Mg Tablet PO 05/22/24 17:09 0.1 mg STAT ONE Administration Cyanocobalamin 1,000 mcg 05/22/24 16:45 Cyanocobalamin 1000 Mcg/Ml Vial IJ 06/21/24 16:44 UD ALEKSANDR Hydralazine HCl 10 mg 05/22/24 22:00 05/22/24 20:13 Hydralazine Hcl 25 Mg Tablet PO 06/21/24 21:59 10 mg BID ALEKSANDR Administration Sodium Chloride 500 mls @ 50 mls/hr 05/22/24 21:45 05/22/24 21:49 Sodium Chloride 3% Hypertonic IV 06/21/24 21:44 50 mls/hr .Q10H ALEKSANDR Administration Isosorbide Mononitrate 30 mg 05/23/24 10:00 Isosorbide Mononitrate 30 Mg Tab PO 06/22/24 09:59 DAILY ALEKSANDR Non-Formulary Medication 145 mg 05/23/24 10:00 Fenofibrate Nanocrystallized [Fenofibrate] PO 06/22/24 09:59 DAILY ALEKSANDR Non-Formulary Medication 1 tab 05/22/24 16:42 Butalbit/Acetamin/Caff/Codeine [Fioricet-Cod 10-771-54-30 Cap] PO DAILY PRN PRN HEADACHE Non-Formulary Medication 200 mg 05/22/24 16:45 Hydroxychloroquine Sulfate [Hydroxychloroquine Sulfate] PO 06/21/24 16:44 UD [facility] Non-Formulary Medication 20 mg 05/23/24 10:00 Atorvastatin Calcium PO 06/22/24 09:59 DAILY ALEKSANDR Ondansetron HCl 4 mg 05/22/24 16:42 Ondansetron Hcl 4 Mg/2 Ml Vial IV 06/21/24 16:41 Q6H PRN PRN NAUSEA/VOMITING Pantoprazole Sodium 20 mg 05/23/24 10:00 Pantoprazole 20 Mg Tab PO 06/22/24 09:59 DAILY ALEKSANDR Ranolazine 500 mg 05/22/24 22:00 05/22/24 20:12 Ranolazine 500 Mg Tab.Sr.12h PO 06/21/24 21:59 500 mg BID ALEKSANDR Administration Sodium Chloride 1,000 mg 05/22/24 17:32 05/22/24 17:48 Sodium Chloride 1,000 Mg Tablet PO 06/21/24 17:31 1,000 mg BID ALEKSANDR Administration Sodium Chloride 1,000 mg 05/22/24 19:51 05/22/24 20:08 Sodium Chloride 1,000 Mg Tablet PO 05/22/24 19:52 1,000 mg ONCE ONE Administration Discontinued Medications Generic Name Dose Route Start Last Admin Trade Name Freq PRN Reason Stop Dose Admin Sodium Chloride 500 mls @ 500 mls/hr 05/22/24 12:11 05/22/24 13:25 Sodium Chloride 0.9% 500 Ml IV 05/22/24 13:10 Infused .Q1H ONE Infusion Sodium Chloride Confirm 05/22/24 12:15 Sodium Chloride 0.9% 500 Ml Administered 05/22/24 12:16 Dose 500 mls @ ud IV .STK-MED ONE Ondansetron HCl 4 mg 05/22/24 12:25 05/22/24 12:36 Ondansetron Hcl 4 Mg/2 Ml Vial IV 05/22/24 12:26 4 mg STAT ONE Administration Ondansetron HCl Confirm 05/22/24 12:35 Ondansetron Hcl 4 Mg/2 Ml Vial Administered 05/22/24 12:36 Dose 4 mg .ROUTE .STK-MED ONE Ondansetron HCl 4 mg 05/22/24 14:04 05/22/24 14:05 Ondansetron Hcl 4 Mg/2 Ml Vial IV 05/22/24 14:05 4 mg STAT ONE Administration Ondansetron HCl Confirm 05/22/24 14:05 Ondansetron Hcl 4 Mg/2 Ml Vial Administered 05/22/24 14:06 Dose 4 mg .ROUTE .STK-MED ONE Sodium Chloride 1,000 mg 05/22/24 22:00 Sodium Chloride 1,000 Mg Tablet PO 06/21/24 21:59 BID [facility] Lab/Rad Data: Laboratory Result Diagrams 05/22/24 12:10 05/22/24 12:00 Laboratory Results 05/22/24 05/22/24 05/22/24 Range/Units 12:30 12:20 12:18 WBC (3.98-10.04) x10^3/uL RBC (3.93-5.22) x10^6/uL Hgb (11.2-15.7) g/dL Hct (34.1-44.9) % MCV (79.4-94.8) fL MCH (25.6-32.2) pg MCHC (32.2-35.5) g/dL RDW (11.7-14.4) % Plt Count (182-369) x10^3/uL MPV (9.4-12.3) fL Gran % (34.0-71.1) % Immature Gran % (Auto) (0.001-0.429) % Nucleat RBC Rel Count (0.00-0.2) % Eos # (Auto) (0.04-0.36) x10^3/uL Immature Gran # (Auto) (0.001-0.031) x10^3u/L Absolute Lymphs (auto) (1.18-3.74) x10^3/uL Absolute Monos (auto) (0.24-0.86) x10^3/uL Absolute Nucleated RBC (0.00-0.012) x10^3u/L Lymphocytes % (19.3-51.7) % Monocytes % (4.7-12.5) % Eosinophils % (0.7-5.8) % Basophils % (0.1-1.2) % Absolute Granulocytes (1.56-6.13) x10^3/uL Basophils # (0.01-0.08) x10^3/uL Sodium (135-145) mmol/L Potassium (3.5-5.1) mmol/L Chloride (98-107) mmol/L Carbon Dioxide (22-30) mmol/L Anion Gap (5-15) MEQ/L BUN (7-17) mg/dL Creatinine (0.52-1.04) mg/dL Estimated GFR ML/MIN Glucose (74-106) mg/dL Lactic Acid 1.0 (0.4-2.0) Calcium (8.4-10.2) mg/dL Total Bilirubin (0.2-1.3) mg/dL AST (14-36) U/L ALT (0-35) U/L Alkaline Phosphatase (38-126) U/L Troponin I (0.000-0.033) ng/mL Serum Total Protein (6.3-8.2) g/dL Albumin (3.5-5.0) g/dL Lipase (23-300) U/L Urine Color Yellow (Yellow) Urine Appearance Clear (Clear) Urine pH 6.5 (4.6-8.0) Ur Specific [place] 1.010 (1.005-1.030) Urine Protein Negative (Negative) Urine Glucose (UA) Negative (Negative) mg/dL Urine Ketones Negative (Negative) Urine Blood Negative (Negative) Urine Nitrite Negative (Negative) Urine Bilirubin Negative (Negative) Urine Urobilinogen 0.2 (0.2) mg/dL Ur Leukocyte Esterase Negative (Negative) U Hyaline Cast (Auto) NONE SEEN (0-2) /LPF Urine Microscopic RBC 0-2 (0-5) /HPF Urine Microscopic WBC 0-2 (0-5) /HPF Ur Epithelial Cells Few (None Seen) /HPF Urine Bacteria Few A (None Seen) /HPF Urine Culture Reflexed NO (NO) Urine Sodium 84 (30-90) mmol/L 05/22/24 05/22/24 05/22/24 Range/Units 12:10 12:00 12:00 WBC 5.5 (3.98-10.04) x10^3/uL RBC 3.76 L (3.93-5.22) x10^6/uL Hgb 11.4 (11.2-15.7) g/dL Hct 32.1 L (34.1-44.9) % MCV 85.4 (79.4-94.8) fL MCH 30.3 (25.6-32.2) pg MCHC 35.5 (32.2-35.5) g/dL RDW 15.7 H (11.7-14.4) % Plt Count 246 (182-369) x10^3/uL MPV 10.6 (9.4-12.3) fL Gran % 38.5 (34.0-71.1) % Immature Gran % (Auto) 0.7 H (0.001-0.429) % Nucleat RBC Rel Count 0.0 (0.00-0.2) % Eos # (Auto) 0.09 (0.04-0.36) x10^3/uL Immature Gran # (Auto) 0.04 H (0.001-0.031) x10^3u/L Absolute Lymphs (auto) 2.25 (1.18-3.74) x10^3/uL Absolute Monos (auto) 0.99 H (0.24-0.86) x10^3/uL Absolute Nucleated RBC 0.00 (0.00-0.012) x10^3u/L Lymphocytes % 41.0 (19.3-51.7) % Monocytes % 18.0 H (4.7-12.5) % Eosinophils % 1.6 (0.7-5.8) % Basophils % 0.2 (0.1-1.2) % Absolute Granulocytes 2.11 (1.56-6.13) x10^3/uL Basophils # 0.01 (0.01-0.08) x10^3/uL Sodium 115 L* (135-145) mmol/L Potassium 4.1 (3.5-5.1) mmol/L Chloride 80 L (98-107) mmol/L Carbon Dioxide 24 (22-30) mmol/L Anion Gap 15.1 H (5-15) MEQ/L BUN 10 (7-17) mg/dL Creatinine 0.65 (0.52-1.04) mg/dL Estimated GFR 95.8 ML/MIN Glucose 95 (74-106) mg/dL Lactic Acid (0.4-2.0) Calcium 9.2 (8.4-10.2) mg/dL Total Bilirubin 1.00 (0.2-1.3) mg/dL AST 86 H (14-36) U/L ALT 74 H (0-35) U/L Alkaline Phosphatase 78 (38-126) U/L Troponin I < 0.012 (0.000-0.033) ng/mL Serum Total Protein 9.3 H (6.3-8.2) g/dL Albumin 4.4 (3.5-5.0) g/dL Lipase 88 (23-300) U/L Urine Color (Yellow) Urine Appearance (Clear) Urine pH (4.6-8.0) Ur Specific [place] (1.005-1.030) Urine Protein (Negative) Urine Glucose (UA) (Negative) mg/dL Urine Ketones (Negative) Urine Blood (Negative) Urine Nitrite (Negative) Urine Bilirubin (Negative) Urine Urobilinogen (0.2) mg/dL Ur Leukocyte Esterase (Negative) U Hyaline Cast (Auto) (0-2) /LPF Urine Microscopic RBC (0-5) /HPF Urine Microscopic WBC (0-5) /HPF Ur Epithelial Cells (None Seen) /HPF Urine Bacteria (None Seen) /HPF Urine Culture Reflexed (NO) Urine Sodium (30-90) mmol/L - Progress Progress: unchanged Progress Note: 05/22/24 15:21 69 years old is evaluated in the ER for confusion. Patient has similar episode earlier this month with hyponatremia. She is given gentle hydration with a small bolus of 500 cc normal saline. Patient does not have any focal neurosymptoms. She does have history of brain mass. I have obtained CT head with contrast which showed stable well-defined midline isodense space-occupying lesion at the anterior aspect of third ventricle which is unchanged as compared to MRI done at [place] few days ago. CT abdomen pelvis with contrast showed small splenic hyperdense lesion which could be hemangioma and right lower anterior abdominal wall subcutaneous lesion which could be fat necrosis and no other acute intra-abdominal pelvic findings. She has no UTI. Troponins are negative. Chemistries otherwise fairly unremarkable. I believe patient's confusion is secondary to hyponatremia. I have discussed with Dr. Upton and he will start her hypertonic saline per protocol and patient is being admitted to hospitalist service. I have shared the results of workup with patient and family and plan of admission which they understand and agree. Discussed with Dr.: Other (Dr. Pierson ) Will see patient in: hospital (observation) Counseled pt/family regarding: lab results, diagnosis, rad results Medical Desision Making - Independent Historian Additional History obtained from: Child - Discussion of managment Care discussed with:: hospitalist Reviewed:: Test results Agreed on:: Treatment plan, place in obs Will see patient: in hospital - Diagnostic Testing Diagnostic test were ordered, analyzed, and reviewed by me: Yes Radiological Interpretation: Reviewed by me, Teleradiologist Report - Risk of complications The pt has a mod risk of morbidity or mortality based on: Need for prescription drug management The pt has a high risk of morbidity or mortality based on: Decision regarding hospitilization or escalation of hosp level of care - Departure Departure Disposition: Observation Clinical Impression: Hyponatremia, Confusion, Brain tumor Condition: Stable Critical Care Time: No
[2024-05-22] MEDS ORDERED: Zofran 4 MG/2 ML VIAL ONE ×2 (12:35→14:05)
[2024-05-22] MEDS: Zofran 4 MG/2 ML VIAL IV ONE ×2 (12:36→14:05)
[2024-05-22 12:38] LABS: Absolute Neutrophil Ct (ANC) 2.11 x10^3/uL (1.56-6.13); BASOPHIL % 0.2 % (0.1-1.2); Basophil (Absolute #) 0.01 x10^3/uL (0.01-0.08); Eosinophil % 1.6 % (0.7-5.8); Eosinophil (Absolute #) 0.09 x10^3/uL (0.04-0.36); Hematocrit 32.1 % (34.1-44.9); Hemoglobin 11.4 g/dL (11.2-15.7); IMMATURE GRAN # 0.04 x10^3u/L (0.001-0.031); IMMATURE GRAN % 0.7 % (0.001-0.429); Lymphocyte (Absolute #) 2.25 x10^3/uL (1.18-3.74); Mean Cell Volume 85.4 fL (79.4-94.8); Mean Corpuscular Hemoglobin 30.3 pg (25.6-32.2); Mean Corpuscular Hgb Concent. 35.5 g/dL (32.2-35.5); Mean Platelet Volume 10.6 fL (9.4-12.3); Monocyte (Absolute #) 0.99 x10^3/uL (0.24-0.86); Neutrophil % 38.5 % (34.0-71.1); Platelet Count 246 x10^3/uL (182-369); Red Blood Count 3.76 x10^6/uL (3.93-5.22); Red Cell Distribution Width 15.7 % (11.7-14.4); White Blood Count 5.5 x10^3/uL (3.98-10.04)
[2024-05-22 12:45] LABS: Appearance Clear (Clear); Bacteria Few /HPF (None Seen); Bilirubin Negative (Negative); Blood Negative (Negative); Epithelial Cells Few /HPF (None Seen); Glucose, Urine Negative (Negative); Hyaline Casts NONE SEEN /LPF (0-2); Ketones Negative (Negative); Leukocyte Esterase Negative (Negative); Nitrite Negative (Negative); Ph 6.5 (4.6-8.0); Protein,Urine Dip Negative (Negative); RBC 0-2 /HPF (0-5); Urobilinogen 0.2 mg/dL (0.2); WBC 0-2 /HPF (0-5)
[2024-05-22 12:53] LABS: ALBUMIN 4.4 g/dL (3.5-5.0); Creatinine 1 0.65 mg/dL (0.52-1.04); EST GLOMERULAR FILTRATION RATE 95.8 ML/MIN; Potassium 4.1 mmol/L (3.5-5.1); Total Protein 9.3 g/dL (6.3-8.2)
[2024-05-22 12:55] LABS: Calcium 9.2 mg/dL (8.4-10.2)
[2024-05-22 13:00] LABS: ANION GAP 15.1 MEQ/L (5-15)
--- NOTE | 2024-05-22 14:36 | XRAY ---
CLINICAL HISTORY: vomiting/abd pain COMPARISON: 05/10/2024. TECHNIQUE: CT of the abdomen and pelvis was performed with and without contrast, with the following protocol: axial images with, and reconstructed coronal and sagittal images. One of the following dose reduction techniques was utilized for this exam: Automated exposure control, adjustment of the mA and/or kV according to patient size, and use of iterative reconstruction. CTDI: 23.35mGy, DLP: 1225.04mGy*cm. FINDINGS: Abdomen: Liver: Normal in size, shape, and density. Few hepatic small calcifications are noted. Hepatic vasculature and biliary ducts are unremarkable. Gallbladder and Biliary System: The gallbladder is normal in size and shape. No wall thickening, pericholecystic fluid, or gallstones were identified. The common bile duct is normal in caliber without dilation. Pancreas: Pancreatic head, body, and tail are visualized and appear normal in size and density. The pancreatic duct is not dilated. Spleen: Normal in size, shape, and density. A well-defined hypodense faintly enhancing focal lesions measures 10 x 9 x 7 mm and smaller 6 mm, for further evaluation. Kidneys and Adrenal Glands: Both kidneys are normal in size, shape, and position. Cortical thickness is within normal limits. No renal calculi or hydronephrosis. Adrenal glands are seen as bulky in size for clinical and Laboratory correlation. Pelvis: Urinary Bladder: Still noted mild cystocele. Normal in contour and wall thickness. No intraluminal lesions were identified. Uterus: Surgically removed. Ovaries: Not well visualized but no gross abnormalities were noted. Vagina: Normal in contour and wall thickness. Cervix: No evidence of mass or abnormal thickening. Peritoneal and Retroperitoneal Structures: No free fluid or abnormal fluid collections were identified within the abdomen or pelvis. No lymphadenopathy was noted. Bowel: The visualized bowel loops are normal in caliber and appearance. No evidence of bowel obstruction or wall thickening. The appendix is not identified however no significant right iliac fossa inflammatory changes to suggest acute appendicitis. Bones and Soft Tissues: Spondylodegenerative changes of the lumber spine with osteophyte complexes formation and mild levo-scoliosis. Minimal retrolithesis of L2 over L3 and mild anterolithesis sof L4 over L5 vertebral bodies. Chronic mild atherosclerosis of the aorta, iliac and femoral arteries. Right-sided lower anterior abdominal wall subcutaneous few well-defined heterogeneous nodular lesions with the largest showing internal fat densities measuring about 2.2 x 1.8 cm, which could be post-traumatic fat necrosis, for clinical correlation and US evaluation. Pelvic bones and soft tissues are unremarkable. No fractures or abnormal masses were identified. IMPRESSION: 1. No acute abnormality. 2. Still noted mild cystocele. 3. A splenic small well-defined hypodense faintly enhancing focal lesions, could be small hemangiomas, for further evaluation or follow-up. 4. Right-sided lower anterior abdominal wall subcutaneous few well-defined heterogeneous nodular lesions with the largest showing internal fat densities measuring about 2.2 x 1.8 cm, which could be post-traumatic fat necrosis, for clinical correlation and US evaluation. 5. No significant interval changes. Electronically Signed by: Shelby Vasquez MD. (05/22/2024 14:33:04 EDT)
--- NOTE | 2024-05-22 14:44 | XRAY ---
CLINICAL HISTORY: comfusion. h/o mass COMPARISON: 05/10/24. TECHNIQUE: Axial contrast-enhanced CT scan of the brain was performed from the skull base to the high parietal region. One of the following dose reduction techniques were utilized for this exam: Automated exposure control, adjustment of the mA and/or kV according to patient size, use of iterative reconstruction. FINDINGS: Brain Parenchyma: Normal attenuation of the cerebral hemispheres, cerebellum, and brainstem. No evidence of acute infarct, hemorrhage, or mass effect. No abnormal areas of enhancement post-contrast. Ventricular System: Still noted A well defined oval shaped midline isodense intraventricular MAXIM is noted implicating the anterior aspect of the third ventricle, measuring 14.8 x 9 x 16 mm along maximum CC, AP and TV diameters respectively, showing homogenous enhancement in the current study, associated prominent frontal horns and bodies of lateral ventricles. Subarachnoid Spaces: Slightly accentuated sulci and cisterns. No evidence of subarachnoid hemorrhage or extra-axial fluid collections. Cerebellum and Brainstem: Normal size and signal. No masses, lesions, or areas of abnormal signal. No abnormal enhancement post-contrast. Pituitary Gland: Normal size and morphology. No evidence of pituitary adenoma or other sellar/suprasellar mass. Orbits: Normal appearance of the globes, optic nerves, and extraocular muscles. No evidence of orbital masses or abnormal enhancement. Sinuses: Clear paranasal sinuses. No evidence of sinusitis or mucosal thickening. Mastoid Air Cells: Clear mastoid air cells. No evidence of mastoiditis. Skull and Meninges: Normal skull morphology. No evidence of meningeal enhancement or thickening. IMPRESSION: 1. Stable A well-defined shaped midline isodense intraventricular MAXIM is noted implicating the anterior aspect of the third ventricle, measuring 14.8 x 9 x 16 mm along maximum CC, AP, and TV diameters respectively, showing homogenous enhancement in the current study, associated prominent frontal horns and bodies of lateral ventricles. Associated prominent frontal horns and bodies of lateral ventricles. Recommend further evaluation by contrast-enhanced MRI brain for better characterization. 2. Early age-related brain involutional changes (Stable). Electronically Signed by: Shelby Vasquez MD. (05/22/2024 14:40:49 EDT)
--- NOTE | 2024-05-22 16:39 | PCM.HP ---
History of Present Illness - Chief Complaint Chief Complaint: HYPONATREMIA Date: 05/22/24 History of Present Illness: is a 69 year old female with PMHX of brain tumor, HTN, Hyperlipidemia, OA, RA, migranes, GERD, obesity, and anxiety. Pt brought to the ER by her family, hypertensive, rates pain as 4/10 to her abdomen and head. She reports increased SOB with activity as well as unsteadiness. Pt has a tumor in her brain but unsure of its status. She has an appointment with [facility] for further evaluation this week. She had a spinal tap last week with oncology and it showed some leukocytes per daughter. Pt became confused last week and not acting herself at that time she was found to have severe hyponatremia. She was admitted to the ICU at [facility] and released Thursday on a fluid restriction. Since then she has had N/V x2 days. She also took Miralax for constipation. She reports no current sensation of constipation. She feels the fluid restriction has been causing this problem. Daughter Trino is at bedside. She is an employee of [employer]. She is also providing hx. She states she has an appointment Thursday with nephrology - Dr. Ugalde for f/u of hyponatremia. Nephrology consulted here. Will start salt tabs and [address] Head and abd completed. Discussed findings with pt. She reports no hx of a recent fall and unaware of abd findings. She will need to f/u OP for CT head findings. Will continue Zofran for N/V. Will check sodium Q6 hours. Seizure precautions in place. PT denies CP, SOB, diarrhea. - Review of Systems Constitutional: No Fever, No Chills Eyes: No Symptoms Ears, Nose, & Throat: No Symptoms Respiratory: No Cough, No Short Of Breath Cardiac: No Chest Pain, No Edema, No Syncope Abdominal/Gastrointestinal: Abdominal Pain, Nausea, Vomiting, Constipation, No Diarrhea Genitourinary Symptoms: No Dysuria Musculoskeletal: No Back Pain, No Neck Pain Skin: No Rash Neurological: Headache, Other (unsteady), No Dizziness, No Focal Weakness, No Sensory Changes Psychological: No Symptoms Endocrine: No Symptoms Hematologic/Lymphatic: No Symptoms Immunological/Allergic: No Symptoms Medications & Allergies Home Medications: Home Medication List ALPRAZolam 0.25 MG [xanAX 0.25 MG] 0.25 mg PO UD PRN 02/03/23 [History Confirmed 05/22/24] Hydroxychloroquine Sulfate 200 mg PO UD 02/03/23 [History Confirmed 05/22/24] Butalbit/Acetamin/Caff/Codeine [Fioricet-Cod 81-505-09-30 Cap] 1 tab PO DAILY PRN PRN 11/12/23 [History Confirmed 05/22/24] Fenofibrate Nanocrystallized [Fenofibrate] 145 mg PO DAILY 11/12/23 [History Confirmed 05/22/24] Cyanocobalamin 1000 Mcg/ml [Cyanocobalamin B-12 1000 MCG/ML] 1,000 mcg IJ UD 12/17/23 [History Confirmed 05/22/24] Carvedilol 3.125 mg [Coreg 3.125 MG] 3.125 mg PO DAILY 05/10/24 [History Confirmed 05/22/24] Hydralazine HCl 10 mg PO BID 05/10/24 [History Confirmed 05/22/24] Isosorbide Mononitrate 30 mg [Imdur 30 MG] 30 mg PO DAILY 05/10/24 [History Confirmed 05/22/24] Ranolazine 500 MG [Ranexa 500 MG] 500 mg PO BID 05/10/24 [History Confirmed 05/22/24] Aspirin EC 81 mg [Ecotrin 81 mg] 81 mg PO DAILY 05/22/24 [History Confirmed 05/22/24] Atorvastatin Calcium [Lipitor 20MG Tablet] 20 mg PO DAILY 05/22/24 [History Confirmed 05/22/24] Buspirone HCl 5 mg [Buspar 5 mg] 10 mg PO BID 05/22/24 [History Confirmed 05/22/24] Allergies/Adverse Reactions: Allergies Allergy/AdvReac Type Severity Reaction Status Date / Time methotrexate Allergy Mild rash/ Verified 05/22/24 16:26 itching - Past Medical History Past Medical History: Yes Neurological History: Migraines, Other ENT History: Cataracts Cardiac History: High Cholesterol, Hypertension Respiratory History: No Pertinent History Endocrine Medical History: No Pertinent History Musculoskelatal History: Osteoarthritis, Rheumatoid Arthritis GI Medical History: GERD History: Renal Disease, Other Pyscho-Social History: Anxiety Reproductive Disorders: No Pertinent History Comment: RIGHT PARTIAL KNEE ARTHROPLASTY 2011. HYSTERECTOMY,. incontinence. mass in brain - Past Surgical History Past Surgical History: Yes Neuro Surgical History: No Pertinent History Cardiac History: No Pertinent History Respiratory Surgery: No Pertinent History GI Surgical History: Appendectomy Genitourinary Surgical Hx: No Pertinent History Musculskeletal Surgical Hx: Joint Replacement, Other Female Surgical History: Hysterectomy, Tubal Ligation Other Surgical History: partial right knee replacement. back injection. left ankle surgery. knee injections - Social History Smoking Status: Former smoker How long have you smoked: 30 years Exposure to second hand smoke: No Alcohol: Occasionally Drug Use: none - Social Determinants of Health Will the patient participate in the screening: Yes Do you worry about a steady place to live?: No Do you have any problems with any of the following?: No known problems In the past 12 months,have you had to go without utilities?: No Have you or anyone in your house had to go without enough: No Transportation Issues: No Has anyone in your support network made you feel unsafe?: No - Physical Exam Vital Signs: Vital Signs - 24 hr Temp Pulse Resp BP BP Pulse Ox 05/22/24 16:01 183/86 05/22/24 15:53 100 05/22/24 15:48 66 19 172/92 05/22/24 15:30 76 15 185/97 96 05/22/24 15:15 67 14 173/89 99 05/22/24 15:00 64 15 165/84 97 05/22/24 14:45 64 19 183/85 97 05/22/24 14:31 66 17 161/80 96 05/22/24 14:15 65 17 177/96 96 05/22/24 14:02 65 14 157/100 97 05/22/24 13:45 65 22 05/22/24 13:30 65 18 166/86 98 05/22/24 13:26 64 17 146/98 99 05/22/24 13:25 69 22 98 05/22/24 12:46 177/88 05/22/24 12:31 65 15 189/95 100 05/22/24 12:16 66 16 158/124 100 05/22/24 12:00 67 16 187/98 81 L 05/22/24 11:54 69 15 170/104 05/22/24 11:38 96.8 F 75 16 184/104 100 General Appearance: no apparent distress, alert, obese Neurologic Exam: alert, oriented x 3, cooperative, normal mood/affect, nml cerebellar function, nml station & gait, sensation nml, confusion, abnormal gait, No motor deficits Eye Exam: PERRL/EOMI, eyes nml inspection Ears, Nose, Throat Exam: normal ENT inspection, TMs normal, pharynx normal, moist mucous membranes Neck Exam: normal inspection, non-tender, supple, full range of motion Respiratory Exam: normal breath sounds, lungs clear, No respiratory distress Cardiovascular Exam: regular rate/rhythm, normal heart sounds, normal peripheral pulses Gastrointestinal/Abdomen Exam: soft, normal bowel sounds, No tenderness, No mass Back Exam: normal inspection, normal range of motion, No CVA tenderness, No vertebral tenderness Extremity Exam: normal inspection, normal range of motion, pelvis stable Skin Exam: normal color, warm, dry, No rash Lymphatic Exam: No adenopathy Results - Labs Lab/Micro Results: Lab Results-Last 24 Hours 05/22/24 05/22/24 05/22/24 Range/Units 12:00 12:00 12:10 WBC 5.5 (3.98-10.04) x10^3/uL RBC 3.76 L (3.93-5.22) x10^6/uL Hgb 11.4 (11.2-15.7) g/dL Hct 32.1 L (34.1-44.9) % MCV 85.4 (79.4-94.8) fL MCH 30.3 (25.6-32.2) pg MCHC 35.5 (32.2-35.5) g/dL RDW 15.7 H (11.7-14.4) % Plt Count 246 (182-369) x10^3/uL MPV 10.6 (9.4-12.3) fL Gran % 38.5 (34.0-71.1) % Immature Gran % (Auto) 0.7 H (0.001-0.429) % Nucleat RBC Rel Count 0.0 (0.00-0.2) % Eos # (Auto) 0.09 (0.04-0.36) x10^3/uL Immature Gran # (Auto) 0.04 H (0.001-0.031) x10^3u/L Absolute Lymphs (auto) 2.25 (1.18-3.74) x10^3/uL Absolute Monos (auto) 0.99 H (0.24-0.86) x10^3/uL Absolute Nucleated RBC 0.00 (0.00-0.012) x10^3u/L Lymphocytes % 41.0 (19.3-51.7) % Monocytes % 18.0 H (4.7-12.5) % Eosinophils % 1.6 (0.7-5.8) % Basophils % 0.2 (0.1-1.2) % Absolute Granulocytes 2.11 (1.56-6.13) x10^3/uL Basophils # 0.01 (0.01-0.08) x10^3/uL Sodium 115 L* (135-145) mmol/L Potassium 4.1 (3.5-5.1) mmol/L Chloride 80 L (98-107) mmol/L Carbon Dioxide 24 (22-30) mmol/L Anion Gap 15.1 H (5-15) MEQ/L BUN 10 (7-17) mg/dL Creatinine 0.65 (0.52-1.04) mg/dL Estimated GFR 95.8 ML/MIN Glucose 95 (74-106) mg/dL Lactic Acid (0.4-2.0) Calcium 9.2 (8.4-10.2) mg/dL Total Bilirubin 1.00 (0.2-1.3) mg/dL AST 86 H (14-36) U/L ALT 74 H (0-35) U/L Alkaline Phosphatase 78 (38-126) U/L Troponin I < 0.012 (0.000-0.033) ng/mL Serum Total Protein 9.3 H (6.3-8.2) g/dL Albumin 4.4 (3.5-5.0) g/dL Lipase 88 (23-300) U/L Urine Color (Yellow) Urine Appearance (Clear) Urine pH (4.6-8.0) Ur Specific [place] (1.005-1.030) Urine Protein (Negative) Urine Glucose (UA) (Negative) mg/dL Urine Ketones (Negative) Urine Blood (Negative) Urine Nitrite (Negative) Urine Bilirubin (Negative) Urine Urobilinogen (0.2) mg/dL Ur Leukocyte Esterase (Negative) U Hyaline Cast (Auto) (0-2) /LPF Urine Microscopic RBC (0-5) /HPF Urine Microscopic WBC (0-5) /HPF Ur Epithelial Cells (None Seen) /HPF Urine Bacteria (None Seen) /HPF Urine Culture Reflexed (NO) 05/22/24 05/22/24 Range/Units 12:18 12:20 WBC (3.98-10.04) x10^3/uL RBC (3.93-5.22) x10^6/uL Hgb (11.2-15.7) g/dL Hct (34.1-44.9) % MCV (79.4-94.8) fL MCH (25.6-32.2) pg MCHC (32.2-35.5) g/dL RDW (11.7-14.4) % Plt Count (182-369) x10^3/uL MPV (9.4-12.3) fL Gran % (34.0-71.1) % Immature Gran % (Auto) (0.001-0.429) % Nucleat RBC Rel Count (0.00-0.2) % Eos # (Auto) (0.04-0.36) x10^3/uL Immature Gran # (Auto) (0.001-0.031) x10^3u/L Absolute Lymphs (auto) (1.18-3.74) x10^3/uL Absolute Monos (auto) (0.24-0.86) x10^3/uL Absolute Nucleated RBC (0.00-0.012) x10^3u/L Lymphocytes % (19.3-51.7) % Monocytes % (4.7-12.5) % Eosinophils % (0.7-5.8) % Basophils % (0.1-1.2) % Absolute Granulocytes (1.56-6.13) x10^3/uL Basophils # (0.01-0.08) x10^3/uL Sodium (135-145) mmol/L Potassium (3.5-5.1) mmol/L Chloride (98-107) mmol/L Carbon Dioxide (22-30) mmol/L Anion Gap (5-15) MEQ/L BUN (7-17) mg/dL Creatinine (0.52-1.04) mg/dL Estimated GFR ML/MIN Glucose (74-106) mg/dL Lactic Acid 1.0 (0.4-2.0) Calcium (8.4-10.2) mg/dL Total Bilirubin (0.2-1.3) mg/dL AST (14-36) U/L ALT (0-35) U/L Alkaline Phosphatase (38-126) U/L Troponin I (0.000-0.033) ng/mL Serum Total Protein (6.3-8.2) g/dL Albumin (3.5-5.0) g/dL Lipase (23-300) U/L Urine Color Yellow (Yellow) Urine Appearance Clear (Clear) Urine pH 6.5 (4.6-8.0) Ur Specific [place] 1.010 (1.005-1.030) Urine Protein Negative (Negative) Urine Glucose (UA) Negative (Negative) mg/dL Urine Ketones Negative (Negative) Urine Blood Negative (Negative) Urine Nitrite Negative (Negative) Urine Bilirubin Negative (Negative) Urine Urobilinogen 0.2 (0.2) mg/dL Ur Leukocyte Esterase Negative (Negative) U Hyaline Cast (Auto) NONE SEEN (0-2) /LPF Urine Microscopic RBC 0-2 (0-5) /HPF Urine Microscopic WBC 0-2 (0-5) /HPF Ur Epithelial Cells Few (None Seen) /HPF Urine Bacteria Few A (None Seen) /HPF Urine Culture Reflexed NO (NO) - Radiology Impressions Radiology Exams & Impressions: Radiology Procedures Category Date Time Status ABDOMEN AND PELVIS W CONTRAST [CT] Stat Exams 05/22/24 13:13 Completed HEAD WITH CONTRAST [CT] Stat Exams 05/22/24 13:17 Completed Assessment/Plan (1) Hyponatremia Current Visit: Yes Status: Acute Assessment & Plan: - Na 115 on admission- recheck 113 @ 1700- NS 500ml fluid bolus was gave in ER - Q2 hours Na+ recheck - Consider hypotonic saline if < 110 - salt tabs BID - fluid restriction - nephrology consult - ICU- tele bed. - seizure precautions - Zofran PRN - Likely SIADH - labs: Serum osmolality, urine osmo, urine Na+, PTH, TSH Code(s): E87.1 - HYPO-OSMOLALITY AND HYPONATREMIA (2) Brain tumor Current Visit: Yes Status: Acute Assessment & Plan: - CT head with contrast: IMPRESSION: 1. Stable A well-defined shaped midline isodense intraventricular MAXIM is noted implicating the anterior aspect of the third ventricle, measuring 14.8 x 9 x 16 mm along maximum CC, AP, and TV diameters respectively, showing homogenous enhancement in the current study, associated prominent frontal horns and bodies of lateral ventricles. Associated prominent frontal horns and bodies of lateral ventricles. Recommend further evaluation by contrast-enhanced MRI brain for better characterization. 2. Early age-related brain involutional changes (Stable). - Pt to F/U with [facility] this week Code(s): D49.6 - NEOPLASM OF UNSPECIFIED BEHAVIOR OF BRAIN (3) Confusion Current Visit: Yes Status: Acute Assessment & Plan: - 2:2 hyponatremia and brain tumor - monitor - BR with BRP with assist Code(s): R41.0 - DISORIENTATION, UNSPECIFIED (4) Abnormal CT of the abdomen Current Visit: Yes Status: Acute Assessment & Plan: - CT abd pelvis: IMPRESSION: 1. No acute abnormality. 2. Still noted mild cystocele. 3. A splenic small well-defined hypodense faintly enhancing focal lesions, could be small hemangiomas, for further evaluation or follow-up. 4. Right-sided lower anterior abdominal wall subcutaneous few well-defined heterogeneous nodular lesions with the largest showing internal fat densities measuring about 2.2 x 1.8 cm, which could be post-traumatic fat necrosis, for clinical correlation and US evaluation. 5. No significant interval changes. - Pt denies any recent fall - US in AM Code(s): R93.5 - ABN FINDINGS ON DX IMAGING OF ABD REGIONS, INC RETROPERITON (5) HTN (hypertension) Current Visit: Yes Status: Acute Assessment & Plan: - Pt reports she took her BP meds today - Restart meds - 1 time dose of Clonidine po- trend - ICU- Tele Code(s): I10 - ESSENTIAL (PRIMARY) HYPERTENSION (6) Hyperlipidemia Current Visit: Yes Status: Chronic Assessment & Plan: - continue statin Code(s): E78.5 - HYPERLIPIDEMIA, UNSPECIFIED (7) Migraines Current Visit: Yes Status: Acute Assessment & Plan: - resume home med Code(s): G43.909 - MIGRAINE, UNSP, NOT INTRACTABLE, WITHOUT STATUS MIGRAINOSUS (8) Anxiety Current Visit: Yes Status: Chronic Assessment & Plan: - resume home med Code(s): F41.9 - ANXIETY DISORDER, UNSPECIFIED (9) Obesity (BMI 30-39.9) Current Visit: Yes Status: Chronic Assessment & Plan: - advised diet and exercise control VTE: SCD PPI: protonix Next of KIN: DaughterMary Jameson D/C plan: 1-2 days Code status: Full Code(s): E66.9 - OBESITY, UNSPECIFIED Telemedicine Encounter - Telemedicine Encounter Telemedicine Encounter: "The entirety of this encounter was performed via Telemedicine" This visit was performed using real-time audio and video connection between my location and thepatients locationwith the assistance of a surrogateat the patients location. Written or verbal consent was obtained from the patient/guardian to perform this visit usingsynchronoustelemedicine technology. Any patient questions regarding the telemedicine interaction were answered.
[2024-05-22] MEDS ORDERED: [UNRECOGNIZED DRUG - OTHER] PO PRN (16:42)
[2024-05-22] MEDS ORDERED: Zofran 4 MG/2 ML VIAL IV PRN (16:42)
[2024-05-22] MEDS ORDERED: CAFF PO PRN (16:42)
[2024-05-22] MEDS ORDERED: xanAX 0.25 MG PO PRN (16:42)
[2024-05-22] MEDS ORDERED: BUTALBIT PO PRN (16:42)
[2024-05-22] MEDS ORDERED: CODEINE PO PRN (16:42)
[2024-05-22] MEDS ORDERED: ACETAMIN PO PRN (16:42)
[2024-05-22] MEDS ORDERED: NON-FORMULARY ITEM (Hydroxychloroquine Sulfate [Hydroxychloroquine Sulfate] 200 MG Tablet) PO SCH (16:45)
[2024-05-22] MEDS: CLONIDINE 0.1 MG TABLET PO ONE (17:37)
[2024-05-22] MEDS: SODIUM CHLORIDE PO SCH (17:48)
[2024-05-22 18:23] LABS: TSH, 3RD Generation 2.45 mIU/L (0.470-4.680); Uric Acid 2.7 mg/dL (2.6-6.0)
[2024-05-22] MEDS: SODIUM CHLORIDE PO ONE (20:08)
[2024-05-22] MEDS ORDERED: Apresoline 25 MG TABLET ONE (20:11)
[2024-05-22] MEDS: Ranexa 500 MG PO SCH (20:12)
[2024-05-22] MEDS: BUSPAR 5 MG PO SCH (20:13)
[2024-05-22] MEDS: Apresoline 25 MG TABLET PO SCH (20:13)
[2024-05-22] MEDS ORDERED: SODIUM CHLORIDE PO SCH (22:00)
--- NOTE | 2024-05-23 02:18 | TM.IN ---
Tele-Medicine Incident Note - Incident Note Tel-Medicine Incident Note: Cross Cover Note Patient admitted with hyponatremia of 115. Noted to have recent diagnosis of brain tumor at [facility], with followup planned with [facility] at [facility]. Patient again admitted with mild confusion, and worse Na than two weeks ago. Initial Na levels were worsening despite fluid restriction and NaCl tablets, 115 -> 113 -> 111. Discussed with patient and daughter. Started patient on hypertonic saline. However, given worsening Na and unclear path, family decided to pursue higher level of care. Daughter wanted to go to [facility] because that is where the neurosurgeon goes and will be where patient wi ll be getting future care. Spoke with Neuro ICU and neurosurgery at [facility], who accepted patient. While awaiting bed availability, have started hypertonic saline at 50 ml/hr. Has improved 111 -> 113 -> 115 over four hours, so will decrease rate to 25 ml/hr. Marcel Carrnigton MD Telemedicine Hospitalist [facility]
[2024-05-23 04:27] LABS: ALBUMIN 3.6 g/dL (3.5-5.0); ANION GAP 11.2 MEQ/L (5-15); BILIRUBIN,TOTAL 0.7 mg/dL (0.2-1.3); Calcium 8.6 mg/dL (8.4-10.2); Creatinine 1 0.74 mg/dL (0.52-1.04); EST GLOMERULAR FILTRATION RATE 88.1 ML/MIN; Potassium 4.1 mmol/L (3.5-5.1); Total Protein 7.6 g/dL (6.3-8.2)
[2024-05-23 04:34] LABS: Hematocrit 28.7 % (34.1-44.9); Hemoglobin 10.1 g/dL (11.2-15.7); Mean Cell Volume 85.4 fL (79.4-94.8); Mean Corpuscular Hemoglobin 30.1 pg (25.6-32.2); Mean Corpuscular Hgb Concent. 35.2 g/dL (32.2-35.5); Mean Platelet Volume 9.8 fL (9.4-12.3); Platelet Count 191 x10^3/uL (182-369); Red Blood Count 3.36 x10^6/uL (3.93-5.22); Red Cell Distribution Width 15.5 % (11.7-14.4); White Blood Count 4.2 x10^3/uL (3.98-10.04)
--- NOTE | 2024-05-23 05:58 | PCM.DS ---
Discharge Summary Date of Admission: 05/22/24 16:10 Date of Discharge: 05/23/24 Admitting Physician: RUSS RODRIGUEZ MD Consults: Consults on Case 05/22/24 16:47 Consult Nephrology ROUTINE Primary Care Provider: ISIAH ODOM Allergies Allergies methotrexate Allergy (Mild, Verified 05/22/24 16:26) rash/ itching Hospital Summary - Hospital Course Hospital Course: is a 69 year old female with PMHX of brain tumor, HTN, Hyperlipidemia, OA, RA, migraines, GERD, obesity, and anxiety presented to ED 05/22/24 with increased confusion. Of note patient had recent admission to [facility] -( released this past Thursday) with severe hyponatremia and placed on a fluid restriction. Family reports that patient had similar symptoms prior to that admission. Pt has a known tumor in her brain but unsure of its status. She has an appointment with [facility] for further evaluation this week. She had a spinal tap last week with oncology and it showed some leukocytes per daughter Pt does have an appointment Thursday with nephrology - Dr. Ugalde for f/u of hyponatremia. Nephrology consulted here. On presentation lab findings remarkable for severe hyponatremia with sodium levels at 113. Will start salt tabs and [address] Head and abd completed. Discussed findings with pt. She reports no hx of a recent fall and unaware of abd findings. She will need to f/u OP for CT head findings. Will continue Zofran for N/V. Will check sodium Q6 hours. Seizure precautions in place. Initial Na levels were worsening despite fluid restriction and NaCl tablets, 115 -> 113 -> 111. Discussed with patient and daughter. Started patient on hypertonic saline. However, given worsening Na and unclear path, family decided to pursue higher level of care. Daughter wanted to go to [facility] because that is where the neurosurgeon goes and will be where patient will be getting future care. Neuro ICU and neurosurgery at [facility], who accepted patient. While awaiting bed availability, have started hypertonic saline at 50 ml/hr. Has improved 111 -> 113 -> 115 over four hours, so will decrease rate to 25 ml/hr. Discharge Note Latest Assessment & Plan (1) Hyponatremia Current Visit: Yes Status: Acute Assessment & Plan: - Na 115 on admission- recheck 113 @ 1700- NS 500ml fluid bolus was gave in ER - Q2 hours Na+ recheck - Consider hypotonic saline if < 110 - salt tabs BID - fluid restriction - nephrology consult - ICU- tele bed. - seizure precautions - Zofran PRN - Likely SIADH - labs: Serum osmolality, urine osmo, urine Na+, PTH, TSH Code(s): E87.1 - HYPO-OSMOLALITY AND HYPONATREMIA (2) Brain tumor Current Visit: Yes Status: Acute Assessment & Plan: - CT head with contrast: IMPRESSION: 1. Stable A well-defined shaped midline isodense intraventricular MAXIM is noted implicating the anterior aspect of the third ventricle, measuring 14.8 x 9 x 16 mm along maximum CC, AP, and TV diameters respectively, showing homogenous enhancement in the current study, associated prominent frontal horns and bodies of lateral ventricles. Associated prominent frontal horns and bodies of lateral ventricles. Recommend further evaluation by contrast-enhanced MRI brain for better characterization. 2. Early age-related brain involutional changes (Stable). - Pt to F/U with [facility] this week Code(s): D49.6 - NEOPLASM OF UNSPECIFIED BEHAVIOR OF BRAIN (3) Confusion Current Visit: Yes Status: Acute Assessment & Plan: - 2:2 hyponatremia and brain tumor - monitor - BR with BRP with assist Code(s): R41.0 - DISORIENTATION, UNSPECIFIED (4) Abnormal CT of the abdomen Current Visit: Yes Status: Acute Assessment & Plan: - CT abd pelvis: IMPRESSION: 1. No acute abnormality. 2. Still noted mild cystocele. 3. A splenic small well-defined hypodense faintly enhancing focal lesions, could be small hemangiomas, for further evaluation or follow-up. 4. Right-sided lower anterior abdominal wall subcutaneous few well-defined heterogeneous nodular lesions with the largest showing internal fat densities measuring about 2.2 x 1.8 cm, which could be post-traumatic fat necrosis, for clinical correlation and US evaluation. 5. No significant interval changes. - Pt denies any recent fall - US in AM Code(s): R93.5 - ABN FINDINGS ON DX IMAGING OF ABD REGIONS, INC RETROPERITON (5) HTN (hypertension) Current Visit: Yes Status: Acute Assessment & Plan: - Pt reports she took her BP meds today - Restart meds - 1 time dose of Clonidine po- trend - ICU- Tele Code(s): I10 - ESSENTIAL (PRIMARY) HYPERTENSION (6) Hyperlipidemia Current Visit: Yes Status: Chronic Assessment & Plan: - continue statin Code(s): E78.5 - HYPERLIPIDEMIA, UNSPECIFIED (7) Migraines Current Visit: Yes Status: Acute Assessment & Plan: - resume home med Code(s): G43.909 - MIGRAINE, UNSP, NOT INTRACTABLE, WITHOUT STATUS MIGRAINOSUS (8) Anxiety Current Visit: Yes Status: Chronic Assessment & Plan: - resume home med Code(s): F41.9 - ANXIETY DISORDER, UNSPECIFIED (9) Obesity (BMI 30-39.9) Current Visit: Yes Status: Chronic Assessment & Plan: - advised diet and exercise control VTE: SCD PPI: protonix Next of KIN: DaughterMary Jameson D/C plan: 1-2 days Code status: Full I spent 35 minutes [id number] with the patient on the day of discharge performing discharge exam, discussing hospital stay and discharge instructions with patient and caregivers, preparation of discharge records, prescriptions & referral forms and addressing any questions/concerns the patient had as documented above. - Vitals & Intake/Output Vital Signs: Vital Signs Temperature 96.9 F 05/23/24 04:01 Pulse Rate 68 05/23/24 05:00 Respiratory Rate 16 05/23/24 05:00 Blood Pressure 148/80 05/23/24 04:01 O2 Sat by Pulse Oximetry 96 05/23/24 05:00 Intake & Output: Intake & Output 05/20/24 05/21/24 05/22/24 05/23/24 11:59 11:59 11:59 11:59 Intake Total 360 Output Total 300 Balance 60 Weight 97.069 kg 97.6 kg - Lab Result Diagrams: 05/23/24 04:11 05/23/24 07:00 Lab Results-Last 24 Hrs: Lab Results-Last 24 Hours 05/22/24 05/22/24 05/22/24 Range/Units 12:00 12:00 12:10 WBC 5.5 (3.98-10.04) x10^3/uL RBC 3.76 L (3.93-5.22) x10^6/uL Hgb 11.4 (11.2-15.7) g/dL Hct 32.1 L (34.1-44.9) % MCV 85.4 (79.4-94.8) fL MCH 30.3 (25.6-32.2) pg MCHC 35.5 (32.2-35.5) g/dL RDW 15.7 H (11.7-14.4) % Plt Count 246 (182-369) x10^3/uL MPV 10.6 (9.4-12.3) fL Gran % 38.5 (34.0-71.1) % Immature Gran % (Auto) 0.7 H (0.001-0.429) % Nucleat RBC Rel Count 0.0 (0.00-0.2) % Eos # (Auto) 0.09 (0.04-0.36) x10^3/uL Immature Gran # (Auto) 0.04 H (0.001-0.031) x10^3u/L Absolute Lymphs (auto) 2.25 (1.18-3.74) x10^3/uL Absolute Monos (auto) 0.99 H (0.24-0.86) x10^3/uL Absolute Nucleated RBC 0.00 (0.00-0.012) x10^3u/L Lymphocytes % 41.0 (19.3-51.7) % Monocytes % 18.0 H (4.7-12.5) % Eosinophils % 1.6 (0.7-5.8) % Basophils % 0.2 (0.1-1.2) % Absolute Granulocytes 2.11 (1.56-6.13) x10^3/uL Basophils # 0.01 (0.01-0.08) x10^3/uL Sodium 115 L* (135-145) mmol/L Potassium 4.1 (3.5-5.1) mmol/L Chloride 80 L (98-107) mmol/L Carbon Dioxide 24 (22-30) mmol/L Anion Gap 15.1 H (5-15) MEQ/L BUN 10 (7-17) mg/dL Creatinine 0.65 (0.52-1.04) mg/dL Estimated GFR 95.8 ML/MIN Glucose 95 (74-106) mg/dL Lactic Acid (0.4-2.0) Uric Acid (2.6-6.0) mg/dL Calcium 9.2 (8.4-10.2) mg/dL Total Bilirubin 1.00 (0.2-1.3) mg/dL AST 86 H (14-36) U/L ALT 74 H (0-35) U/L Alkaline Phosphatase 78 (38-126) U/L Troponin I < 0.012 (0.000-0.033) ng/mL Serum Total Protein 9.3 H (6.3-8.2) g/dL Albumin 4.4 (3.5-5.0) g/dL Lipase 88 (23-300) U/L TSH 3rd Generation (0.470-4.680) mIU/L Urine Color (Yellow) Urine Appearance (Clear) Urine pH (4.6-8.0) Ur Specific [place] (1.005-1.030) Urine Protein (Negative) Urine Glucose (UA) (Negative) mg/dL Urine Ketones (Negative) Urine Blood (Negative) Urine Nitrite (Negative) Urine Bilirubin (Negative) Urine Urobilinogen (0.2) mg/dL Ur Leukocyte Esterase (Negative) U Hyaline Cast (Auto) (0-2) /LPF Urine Microscopic RBC (0-5) /HPF Urine Microscopic WBC (0-5) /HPF Ur Epithelial Cells (None Seen) /HPF Urine Bacteria (None Seen) /HPF Urine Culture Reflexed (NO) Urine Sodium (30-90) mmol/L 05/22/24 05/22/24 05/22/24 Range/Units 12:18 12:20 12:30 WBC (3.98-10.04) x10^3/uL RBC (3.93-5.22) x10^6/uL Hgb (11.2-15.7) g/dL Hct (34.1-44.9) % MCV (79.4-94.8) fL MCH (25.6-32.2) pg MCHC (32.2-35.5) g/dL RDW (11.7-14.4) % Plt Count (182-369) x10^3/uL MPV (9.4-12.3) fL Gran % (34.0-71.1) % Immature Gran % (Auto) (0.001-0.429) % Nucleat RBC Rel Count (0.00-0.2) % Eos # (Auto) (0.04-0.36) x10^3/uL Immature Gran # (Auto) (0.001-0.031) x10^3u/L Absolute Lymphs (auto) (1.18-3.74) x10^3/uL Absolute Monos (auto) (0.24-0.86) x10^3/uL Absolute Nucleated RBC (0.00-0.012) x10^3u/L Lymphocytes % (19.3-51.7) % Monocytes % (4.7-12.5) % Eosinophils % (0.7-5.8) % Basophils % (0.1-1.2) % Absolute Granulocytes (1.56-6.13) x10^3/uL Basophils # (0.01-0.08) x10^3/uL Sodium (135-145) mmol/L Potassium (3.5-5.1) mmol/L Chloride (98-107) mmol/L Carbon Dioxide (22-30) mmol/L Anion Gap (5-15) MEQ/L BUN (7-17) mg/dL Creatinine (0.52-1.04) mg/dL Estimated GFR ML/MIN Glucose (74-106) mg/dL Lactic Acid 1.0 (0.4-2.0) Uric Acid (2.6-6.0) mg/dL Calcium (8.4-10.2) mg/dL Total Bilirubin (0.2-1.3) mg/dL AST (14-36) U/L ALT (0-35) U/L Alkaline Phosphatase (38-126) U/L Troponin I (0.000-0.033) ng/mL Serum Total Protein (6.3-8.2) g/dL Albumin (3.5-5.0) g/dL Lipase (23-300) U/L TSH 3rd Generation (0.470-4.680) mIU/L Urine Color Yellow (Yellow) Urine Appearance Clear (Clear) Urine pH 6.5 (4.6-8.0) Ur Specific [place] 1.010 (1.005-1.030) Urine Protein Negative (Negative) Urine Glucose (UA) Negative (Negative) mg/dL Urine Ketones Negative (Negative) Urine Blood Negative (Negative) Urine Nitrite Negative (Negative) Urine Bilirubin Negative (Negative) Urine Urobilinogen 0.2 (0.2) mg/dL Ur Leukocyte Esterase Negative (Negative) U Hyaline Cast (Auto) NONE SEEN (0-2) /LPF Urine Microscopic RBC 0-2 (0-5) /HPF Urine Microscopic WBC 0-2 (0-5) /HPF Ur Epithelial Cells Few (None Seen) /HPF Urine Bacteria Few A (None Seen) /HPF Urine Culture Reflexed NO (NO) Urine Sodium 84 (30-90) mmol/L 05/22/24 05/22/24 05/22/24 Range/Units 16:20 16:30 17:07 WBC (3.98-10.04) x10^3/uL RBC (3.93-5.22) x10^6/uL Hgb (11.2-15.7) g/dL Hct (34.1-44.9) % MCV (79.4-94.8) fL MCH (25.6-32.2) pg MCHC (32.2-35.5) g/dL RDW (11.7-14.4) % Plt Count (182-369) x10^3/uL MPV (9.4-12.3) fL Gran % (34.0-71.1) % Immature Gran % (Auto) (0.001-0.429) % Nucleat RBC Rel Count (0.00-0.2) % Eos # (Auto) (0.04-0.36) x10^3/uL Immature Gran # (Auto) (0.001-0.031) x10^3u/L Absolute Lymphs (auto) (1.18-3.74) x10^3/uL Absolute Monos (auto) (0.24-0.86) x10^3/uL Absolute Nucleated RBC (0.00-0.012) x10^3u/L Lymphocytes % (19.3-51.7) % Monocytes % (4.7-12.5) % Eosinophils % (0.7-5.8) % Basophils % (0.1-1.2) % Absolute Granulocytes (1.56-6.13) x10^3/uL Basophils # (0.01-0.08) x10^3/uL Sodium 113 L* (135-145) mmol/L Potassium (3.5-5.1) mmol/L Chloride (98-107) mmol/L Carbon Dioxide (22-30) mmol/L Anion Gap (5-15) MEQ/L BUN (7-17) mg/dL Creatinine (0.52-1.04) mg/dL Estimated GFR ML/MIN Glucose (74-106) mg/dL Lactic Acid (0.4-2.0) Uric Acid 2.7 (2.6-6.0) mg/dL Calcium (8.4-10.2) mg/dL Total Bilirubin (0.2-1.3) mg/dL AST (14-36) U/L ALT (0-35) U/L Alkaline Phosphatase (38-126) U/L Troponin I < 0.012 (0.000-0.033) ng/mL Serum Total Protein (6.3-8.2) g/dL Albumin (3.5-5.0) g/dL Lipase (23-300) U/L TSH 3rd Generation 2.450 (0.470-4.680) mIU/L Urine Color (Yellow) Urine Appearance (Clear) Urine pH (4.6-8.0) Ur Specific [place] (1.005-1.030) Urine Protein (Negative) Urine Glucose (UA) (Negative) mg/dL Urine Ketones (Negative) Urine Blood (Negative) Urine Nitrite (Negative) Urine Bilirubin (Negative) Urine Urobilinogen (0.2) mg/dL Ur Leukocyte Esterase (Negative) U Hyaline Cast (Auto) (0-2) /LPF Urine Microscopic RBC (0-5) /HPF Urine Microscopic WBC (0-5) /HPF Ur Epithelial Cells (None Seen) /HPF Urine Bacteria (None Seen) /HPF Urine Culture Reflexed (NO) Urine Sodium (30-90) mmol/L 05/22/24 05/22/24 05/22/24 Range/Units 19:19 20:55 20:55 WBC (3.98-10.04) x10^3/uL RBC (3.93-5.22) x10^6/uL Hgb (11.2-15.7) g/dL Hct (34.1-44.9) % MCV (79.4-94.8) fL MCH (25.6-32.2) pg MCHC (32.2-35.5) g/dL RDW (11.7-14.4) % Plt Count (182-369) x10^3/uL MPV (9.4-12.3) fL Gran % (34.0-71.1) % Immature Gran % (Auto) (0.001-0.429) % Nucleat RBC Rel Count (0.00-0.2) % Eos # (Auto) (0.04-0.36) x10^3/uL Immature Gran # (Auto) (0.001-0.031) x10^3u/L Absolute Lymphs (auto) (1.18-3.74) x10^3/uL Absolute Monos (auto) (0.24-0.86) x10^3/uL Absolute Nucleated RBC (0.00-0.012) x10^3u/L Lymphocytes % (19.3-51.7) % Monocytes % (4.7-12.5) % Eosinophils % (0.7-5.8) % Basophils % (0.1-1.2) % Absolute Granulocytes (1.56-6.13) x10^3/uL Basophils # (0.01-0.08) x10^3/uL Sodium 113 L* 111 L* (135-145) mmol/L Potassium (3.5-5.1) mmol/L Chloride (98-107) mmol/L Carbon Dioxide (22-30) mmol/L Anion Gap (5-15) MEQ/L BUN (7-17) mg/dL Creatinine (0.52-1.04) mg/dL Estimated GFR ML/MIN Glucose (74-106) mg/dL Lactic Acid (0.4-2.0) Uric Acid (2.6-6.0) mg/dL Calcium (8.4-10.2) mg/dL Total Bilirubin (0.2-1.3) mg/dL AST (14-36) U/L ALT (0-35) U/L Alkaline Phosphatase (38-126) U/L Troponin I < 0.012 (0.000-0.033) ng/mL Serum Total Protein (6.3-8.2) g/dL Albumin (3.5-5.0) g/dL Lipase (23-300) U/L TSH 3rd Generation (0.470-4.680) mIU/L Urine Color (Yellow) Urine Appearance (Clear) Urine pH (4.6-8.0) Ur Specific [place] (1.005-1.030) Urine Protein (Negative) Urine Glucose (UA) (Negative) mg/dL Urine Ketones (Negative) Urine Blood (Negative) Urine Nitrite (Negative) Urine Bilirubin (Negative) Urine Urobilinogen (0.2) mg/dL Ur Leukocyte Esterase (Negative) U Hyaline Cast (Auto) (0-2) /LPF Urine Microscopic RBC (0-5) /HPF Urine Microscopic WBC (0-5) /HPF Ur Epithelial Cells (None Seen) /HPF Urine Bacteria (None Seen) /HPF Urine Culture Reflexed (NO) Urine Sodium (30-90) mmol/L 05/22/24 05/23/24 05/23/24 Range/Units 23:14 01:18 04:11 WBC 4.2 (3.98-10.04) x10^3/uL RBC 3.36 L (3.93-5.22) x10^6/uL Hgb 10.1 L (11.2-15.7) g/dL Hct 28.7 L (34.1-44.9) % MCV 85.4 (79.4-94.8) fL MCH 30.1 (25.6-32.2) pg MCHC 35.2 (32.2-35.5) g/dL RDW 15.5 H (11.7-14.4) % Plt Count 191 (182-369) x10^3/uL MPV 9.8 (9.4-12.3) fL Gran % (34.0-71.1) % Immature Gran % (Auto) (0.001-0.429) % Nucleat RBC Rel Count (0.00-0.2) % Eos # (Auto) (0.04-0.36) x10^3/uL Immature Gran # (Auto) (0.001-0.031) x10^3u/L Absolute Lymphs (auto) (1.18-3.74) x10^3/uL Absolute Monos (auto) (0.24-0.86) x10^3/uL Absolute Nucleated RBC (0.00-0.012) x10^3u/L Lymphocytes % (19.3-51.7) % Monocytes % (4.7-12.5) % Eosinophils % (0.7-5.8) % Basophils % (0.1-1.2) % Absolute Granulocytes (1.56-6.13) x10^3/uL Basophils # (0.01-0.08) x10^3/uL Sodium 115 L* 117 L* (135-145) mmol/L Potassium (3.5-5.1) mmol/L Chloride (98-107) mmol/L Carbon Dioxide (22-30) mmol/L Anion Gap (5-15) MEQ/L BUN (7-17) mg/dL Creatinine (0.52-1.04) mg/dL Estimated GFR ML/MIN Glucose (74-106) mg/dL Lactic Acid (0.4-2.0) Uric Acid (2.6-6.0) mg/dL Calcium (8.4-10.2) mg/dL Total Bilirubin (0.2-1.3) mg/dL AST (14-36) U/L ALT (0-35) U/L Alkaline Phosphatase (38-126) U/L Troponin I (0.000-0.033) ng/mL Serum Total Protein (6.3-8.2) g/dL Albumin (3.5-5.0) g/dL Lipase (23-300) U/L TSH 3rd Generation (0.470-4.680) mIU/L Urine Color (Yellow) Urine Appearance (Clear) Urine pH (4.6-8.0) Ur Specific [place] (1.005-1.030) Urine Protein (Negative) Urine Glucose (UA) (Negative) mg/dL Urine Ketones (Negative) Urine Blood (Negative) Urine Nitrite (Negative) Urine Bilirubin (Negative) Urine Urobilinogen (0.2) mg/dL Ur Leukocyte Esterase (Negative) U Hyaline Cast (Auto) (0-2) /LPF Urine Microscopic RBC (0-5) /HPF Urine Microscopic WBC (0-5) /HPF Ur Epithelial Cells (None Seen) /HPF Urine Bacteria (None Seen) /HPF Urine Culture Reflexed (NO) Urine Sodium (30-90) mmol/L 05/23/24 Range/Units 04:11 WBC (3.98-10.04) x10^3/uL RBC (3.93-5.22) x10^6/uL Hgb (11.2-15.7) g/dL Hct (34.1-44.9) % MCV (79.4-94.8) fL MCH (25.6-32.2) pg MCHC (32.2-35.5) g/dL RDW (11.7-14.4) % Plt Count (182-369) x10^3/uL MPV (9.4-12.3) fL Gran % (34.0-71.1) % Immature Gran % (Auto) (0.001-0.429) % Nucleat RBC Rel Count (0.00-0.2) % Eos # (Auto) (0.04-0.36) x10^3/uL Immature Gran # (Auto) (0.001-0.031) x10^3u/L Absolute Lymphs (auto) (1.18-3.74) x10^3/uL Absolute Monos (auto) (0.24-0.86) x10^3/uL Absolute Nucleated RBC (0.00-0.012) x10^3u/L Lymphocytes % (19.3-51.7) % Monocytes % (4.7-12.5) % Eosinophils % (0.7-5.8) % Basophils % (0.1-1.2) % Absolute Granulocytes (1.56-6.13) x10^3/uL Basophils # (0.01-0.08) x10^3/uL Sodium 118 L* (135-145) mmol/L Potassium 4.1 (3.5-5.1) mmol/L Chloride 88 L (98-107) mmol/L Carbon Dioxide 23 (22-30) mmol/L Anion Gap 11.2 (5-15) MEQ/L BUN 9 (7-17) mg/dL Creatinine 0.74 (0.52-1.04) mg/dL Estimated GFR 88.1 ML/MIN Glucose 86 (74-106) mg/dL Lactic Acid (0.4-2.0) Uric Acid (2.6-6.0) mg/dL Calcium 8.6 (8.4-10.2) mg/dL Total Bilirubin 0.70 (0.2-1.3) mg/dL AST 67 H (14-36) U/L ALT 56 H (0-35) U/L Alkaline Phosphatase 69 (38-126) U/L Troponin I (0.000-0.033) ng/mL Serum Total Protein 7.6 (6.3-8.2) g/dL Albumin 3.6 (3.5-5.0) g/dL Lipase (23-300) U/L TSH 3rd Generation (0.470-4.680) mIU/L Urine Color (Yellow) Urine Appearance (Clear) Urine pH (4.6-8.0) Ur Specific [place] (1.005-1.030) Urine Protein (Negative) Urine Glucose (UA) (Negative) mg/dL Urine Ketones (Negative) Urine Blood (Negative) Urine Nitrite (Negative) Urine Bilirubin (Negative) Urine Urobilinogen (0.2) mg/dL Ur Leukocyte Esterase (Negative) U Hyaline Cast (Auto) (0-2) /LPF Urine Microscopic RBC (0-5) /HPF Urine Microscopic WBC (0-5) /HPF Ur Epithelial Cells (None Seen) /HPF Urine Bacteria (None Seen) /HPF Urine Culture Reflexed (NO) Urine Sodium (30-90) mmol/L - Radiology Exams Ordered Rad Exams-Entire Visit: Radiology Procedures Category Date Time Status ABDOMEN AND PELVIS W CONTRAST [CT] Stat Exams 05/22/24 13:13 Completed HEAD WITH CONTRAST [CT] Stat Exams 05/22/24 13:17 Completed US ABDOMEN LIMITED [ABDOMINAL-LIMITED] [US] Routine Exams 05/23/24 08:00 Ordered Final Diagnosis/Problem List - Final Discharge Diagnosis/Problem (1) Hyponatremia Current Visit: Yes Status: Acute Code(s): E87.1 - HYPO-OSMOLALITY AND HYPONATREMIA (2) Abnormal CT of the abdomen Current Visit: Yes Status: Acute Code(s): R93.5 - ABN FINDINGS ON DX IMAGING OF ABD REGIONS, INC RETROPERITON (3) Brain tumor Current Visit: Yes Status: Acute Code(s): D49.6 - NEOPLASM OF UNSPECIFIED BEHAVIOR OF BRAIN (4) Confusion Current Visit: Yes Status: Acute Code(s): R41.0 - DISORIENTATION, UNSPECIFIED (5) HTN (hypertension) Current Visit: Yes Status: Chronic Code(s): I10 - ESSENTIAL (PRIMARY) HYPERTENSION (6) Migraines Current Visit: Yes Status: Chronic Code(s): G43.909 - MIGRAINE, UNSP, NOT INTRACTABLE, WITHOUT STATUS MIGRAINOSUS (7) Anxiety Current Visit: Yes Status: Chronic Code(s): F41.9 - ANXIETY DISORDER, UNSPECIFIED (8) Hyperlipidemia Current Visit: Yes Status: Chronic Code(s): E78.5 - HYPERLIPIDEMIA, UNSPECIFIED (9) Obesity (BMI 30-39.9) Current Visit: Yes Status: Chronic Code(s): E66.9 - OBESITY, UNSPECIFIED - Discharge Discharge Date: 05/23/24 Disposition: DC TO OTHER HOSP Condition: Fair Prescriptions: New Pantoprazole 20 mg [Protonix 20MG Tablet] 20 mg PO DAILY tablet NaCl 3% 500 ml [Sodium Chloride 3% HYPERTONIC] 25 ml IV .Q20H Ondansetron HCl 4 mg/2 ml [Zofran 4 MG/2 ML VIAL] 4 mg IV Q6H PRN PRN PRN Reason: Nausea/Vomiting Continue Hydroxychloroquine Sulfate 200 mg PO UD ALPRAZolam 0.25 MG [xanAX 0.25 MG] 0.25 mg PO UD PRN PRN Reason: Anxiety Fenofibrate Nanocrystallized [Fenofibrate] 145 mg PO DAILY Butalbit/Acetamin/Caff/Codeine [Fioricet-Cod [id number] Cap] 1 tab PO DAILY PRN PRN PRN Reason: Headache Cyanocobalamin 1000 Mcg/ml [Cyanocobalamin B-12 1000 MCG/ML] 1,000 mcg IJ UD Ranolazine 500 MG [Ranexa 500 MG] 500 mg PO BID Isosorbide Mononitrate 30 mg [Imdur 30 MG] 30 mg PO DAILY Hydralazine HCl 10 mg PO BID Carvedilol 3.125 mg [Coreg 3.125 MG] 3.125 mg PO DAILY Atorvastatin Calcium [Lipitor 20MG Tablet] 20 mg PO DAILY Aspirin EC 81 mg [Ecotrin 81 mg] 81 mg PO DAILY Buspirone HCl 5 mg [Buspar 5 mg] 10 mg PO BID Follow up with: SHRUTHI TOBAR MD [CONSULTING PHYSICIAN] - 05/24/24 ISIAH ODOM NP [Primary Care Provider] -
[2024-05-23 06:09] VITALS: O2SAT 99
[2024-05-23] MEDS ORDERED: MEDICATION INTERVENTION MC SCH ×3 (06:45→07:00)
[2024-05-23 07:52] VITALS: BP 152/73; RESP 15; TEMP 97.9
[2024-05-23 07:59] VITALS: PULSE 78
[2024-05-23] MEDS: Transderm Scop 1.5MG Patch TOP ONE (08:09)
[2024-05-23] MEDS: Dextrose 5%/Water IV Soln. 250 ML 250 ML IV SCH (08:31)
[2024-05-23] MEDS ORDERED: Tricor 145 MG PO SCH (10:00)
[2024-05-23] MEDS ORDERED: ECOTRIN 81 MG PO SCH (10:00)
[2024-05-23] MEDS ORDERED: NON-FORMULARY ITEM (Atorvastatin Calcium 20 MG Tab) PO SCH (10:00)
[2024-05-23] MEDS ORDERED: NON-FORMULARY ITEM (Fenofibrate Nanocrystallized [Fenofibrate] 48 MG Tablet) PO SCH (10:00)
[2024-05-23] MEDS ORDERED: Coreg 3.125 MG PO SCH (10:00)
[2024-05-23] MEDS ORDERED: Imdur 30 MG PO SCH (10:00)
[2024-05-23] MEDS ORDERED: ZOCOR 20MG PO SCH (10:00)
[2024-05-23] MEDS ORDERED: Protonix 20MG Tablet PO SCH (10:00)
[2024-05-23] MEDS ORDERED: Apresoline 25 MG TABLET PO SCH (10:00)
[2024-05-30] MEDS ORDERED: Cyanocobalamin B-12 1000 MCG/ML IJ SCH (10:00)
== END 2024-05-23 09:32 ==
LOC: ED 11:34 → ICU 16:10
PROVIDERS: ADMIT Internal Medicine; ATTEND Internal Medicine
DX: E87.1 Hypo-osmolality and hyponatremia (principal); D49.6 Neoplasm of unspecified behavior of brain; I10 Essential (primary) hypertension; E78.5 Hyperlipidemia, unspecified; K21.9 Gastro-esophageal reflux disease without esophagitis; E66.9 Obesity, unspecified; F41.9 Anxiety disorder, unspecified; R41.0 Disorientation, unspecified; R93.5 Abnormal findings on diagnostic imaging of other abdominal regions, including retroperitoneum; G43.909 Migraine, unspecified, not intractable, without status migrainosus; Z79.899 Other long term (current) drug therapy
CPT/HCPCS: 36000; 36415; 70460; 74177; 80053; 81001; 83605; 83690; 83930; 83935; 83970; 84295; 84300; 84443; 84484; 84550; 85025; 85027; 87040; 96374; 96376; 99285; Q3014; 93268; J2405; A9270-GY; G0378